=== PATIENT | male | born 1950 | race Caucasian/White ===

== ENCOUNTER 2018-06-16 15:10 | Emergency (ER) | payer MEDICARE, MEDICAID ==
[~2018-06-16] VITALS: Ht 180.3 cm; Wt 76.2 kg
[2018-06-16 16:59] LABS: BASOPHILS % (AUTO) 0.4 % (0-1); EOSINOPHILS # (AUTO) 0.7 X10'3 (0-0.9); EOSINOPHILS % (AUTO) 17.9 % (0-6); HEMATOCRIT 32.4 % (42.0-52.0); HEMOGLOBIN 10.7 g/dl (14.0-17.9); LYMPHOCYTES # (AUTO) 0.7 X10'3 (1.1-4.8); LYMPHOCYTES % (AUTO) 17.9 % (21-51); MEAN PLATELET VOLUME 7.7 FL (7.4-10.4); MONOCYTES # (AUTO) 0.3 X10'3 (0-0.9); MONOCYTES % (AUTO) 8.4 % (2-12); NEUTROPHILS # (AUTO) 2.1 X10'3 (1.8-7.7); NEUTROPHILS % (AUTO) 55.4 % (42-75); PLATELET COUNT 194 X10'3 (140-440); RED BLOOD COUNT 3.14 X10'6 (4.70-6.10); RED CELL DISTRIBUTION WIDTH 14.2 % (11.5-14.5); WHITE BLOOD COUNT 3.7 X10'3 (4.5-11.0)
[2018-06-16 17:12] LABS: INR 1.2 INR; PROTHROMBIN TIME 11.9 SECONDS (9.0-12.0)
[2018-06-16 17:27] LABS: ALANINE AMINOTRANSFERASE 14 U/L (12-78); ALBUMIN/GLOBULIN RATIO 0.4 (1.1-1.5); ALKALINE PHOSPHATASE 108 IU/L (46-116); ANION GAP 7 (8-16); ASPARTATE AMINO TRANSFERASE 39 U/L (10-37); BILIRUBIN,TOTAL 0.7 MG/DL (0.1-1.0); BLOOD UREA NITROGEN 4 MG/DL (7-18); CALCIUM 8.4 MG/DL (8.5-10.1); CHLORIDE 104 MMOL/L (99-107); GLUCOSE 87 MG/DL (70-104); PHOSPHORUS 3.3 MG/DL (2.3-4.5); SODIUM 139 MMOL/L (135-145); TOTAL PROTEIN 6.9 G/DL (6.4-8.2)
[2018-06-16 17:34] LABS: BUN/CREATININE RATIO 4.1 (5.4-32.0); CREATININE 0.98 MG/DL (0.60-1.10); eGFR 76 ML/MIN
[2018-06-16] MEDS ORDERED: potassium Cl oral solution 20 MEQ/15 ML PO ONE (18:05)
[2018-06-16 18:52] VITALS: BP 151/94
== END 2018-06-16 18:56 | disposition home or self-care (01) ==
LOC: ER 15:11
DX: T82.897A Other specified complication of cardiac prosthetic devices, implants and grafts, initial encounter (principal); R60.9 Edema, unspecified; E87.6 Hypokalemia; I10 Essential (primary) hypertension; J44.9 Chronic obstructive pulmonary disease, unspecified; J90 Pleural effusion, not elsewhere classified; G31.9 Degenerative disease of nervous system, unspecified; Z85.038 Personal history of other malignant neoplasm of large intestine; Z86.19 Personal history of other infectious and parasitic diseases; Z98.890 Other specified postprocedural states; Y92.9 Unspecified place or not applicable
CPT/HCPCS: 36415; 70450; 71046; 71250; 80053; 83880; 84100; 85025; 85610; 99285

== ENCOUNTER 2018-07-07 12:59 | Observation (INO) | payer MEDICARE, OTHER, MEDICAID ==
[~2018-07-07] VITALS: Ht 175.3 cm; Wt 75.6 kg
[2018-07-07] VITALS (12 sets, daily range): BP systolic 97–145; BP diastolic 68–88
[~2018-07-07 12:59] MED LIST: GABA600T2 PO; cefazolin/dext.iso 2gm/50ml 50 ML IV ONE; famotidine 20mg tablet PO ONE; ringers solution, lacted 1,000 ML IV SCH
[2018-07-07] MEDS ORDERED: cefazolin/dext.iso 2gm/50ml 50 ML IV ONE (13:55)
[2018-07-07] MEDS ORDERED: gabapentin 300mg capsule PO ONE (14:20)
[2018-07-07 19:45] LABS: BASOPHILS % (AUTO) 1.4 % (0-1); EOSINOPHILS # (AUTO) 0.4 X10'3 (0-0.9); EOSINOPHILS % (AUTO) 14.8 % (0-6); HEMATOCRIT 28.5 % (42.0-52.0); HEMOGLOBIN 9.5 g/dl (14.0-17.9); LYMPHOCYTES # (AUTO) 0.6 X10'3 (1.1-4.8); LYMPHOCYTES % (AUTO) 22.9 % (21-51); MEAN CORPUSCULAR HEMOGLOBIN 32.6 PG (27.0-31.0); MEAN CORPUSCULAR HGB CONC 33.2 % (33.0-36.5); MEAN CORPUSCULAR VOLUME 98.1 FL (78-98); MEAN PLATELET VOLUME 7.8 FL (7.4-10.4); MONOCYTES # (AUTO) 0.3 X10'3 (0-0.9); MONOCYTES % (AUTO) 10.2 % (2-12); NEUTROPHILS # (AUTO) 1.4 X10'3 (1.8-7.7); NEUTROPHILS % (AUTO) 50.7 % (42-75); PLATELET COUNT 159 X10'3 (140-440); WHITE BLOOD COUNT 2.8 X10'3 (4.5-11.0)
[2018-07-07] MEDS ORDERED: BUPIVAcaine/PF 2.5mg/ml (0.25%) 10ml vial ONE (19:52)
[2018-07-07 20:09] LABS: INR 1.3 INR; PARTIAL THROMBOPLASTIN TIME 33 SECONDS (22-32); PROTHROMBIN TIME 12.9 SECONDS (9.0-12.0)
[2018-07-07 20:13] LABS: ALANINE AMINOTRANSFERASE 8 U/L (12-78); ALBUMIN 1.6 G/DL (3.4-5.0); ALBUMIN/GLOBULIN RATIO 0.4 (1.1-1.5); ALKALINE PHOSPHATASE 82 IU/L (46-116); ANION GAP 8 (8-16); ASPARTATE AMINO TRANSFERASE 30 U/L (10-37); BILIRUBIN,TOTAL 0.9 MG/DL (0.1-1.0); BLOOD UREA NITROGEN 3 MG/DL (7-18); BUN/CREATININE RATIO 3.3 (5.4-32.0); CALCIUM 7.7 MG/DL (8.5-10.1); CHLORIDE 106 MMOL/L (99-107); CREATININE 0.92 MG/DL (0.60-1.10); GLUCOSE 80 MG/DL (70-104); SODIUM 140 MMOL/L (135-145); TOTAL CARBON DIOXIDE 26.1 MMOL/L (24-32); TOTAL PROTEIN 5.5 G/DL (6.4-8.2); eGFR 82 ML/MIN
[2018-07-07] MEDS ORDERED: midazolam 2 mg/2 ml injection ONE (20:30)
[2018-07-07] MEDS ORDERED: fentaNYL/PF 50MCG/1 ML 2ML syringe ONE (20:30)
[2018-07-07] MEDS ORDERED: propofol inj 20 ML IV ONE (20:30)
[2018-07-07] MEDS ORDERED: ringers solution, lacted 1,000 ML IV SCH (21:03)
[2018-07-07] MEDS ORDERED: proCHLORperazine 10 MG/2 ml inj IV PRN (21:05)
[2018-07-07] MEDS ORDERED: ondansetron/PF 4mg/2ml inj IV PRN (21:05)
[2018-07-07] MEDS ORDERED: meperidine/PF 25mg/ml syringe IV PRN ×3 (21:05)
[2018-07-07] MEDS ORDERED: morphine 4 MG/ML inj SYRINge IV PRN ×2 (21:05)
[2018-07-07 23:27] LABS: TOTAL CELLS COUNTED 100
[2018-07-07 23:28] LABS: ANISOCYTOSIS 1+; PLATELET ESTIMATE NORMAL; TARGET CELLS FEW
[2018-07-08] VITALS: BP 122/74
[2018-07-08] MEDS: HYDROcodone/acetaminophen 10/325mg tab PO PRN ×2 (00:10→04:30)
[2018-07-08 03:00] VITALS: BP 121/72
[2018-07-08 07:00] VITALS: BP 121/75
[2018-07-08] MEDS ORDERED: HYDR-3972 PO (10:50)
[2018-07-08 11:00] VITALS: BP 134/85
== END 2018-07-08 13:20 | disposition home or self-care (01) ==
LOC: PAS 12:59 → PCU 3S 18:16 → PAS 20:59
PROVIDERS: ADMIT Surgery; ATTEND Surgery
DX: T85.848A Pain due to other internal prosthetic devices, implants and grafts, initial encounter (principal); X58.XXXA Exposure to other specified factors, initial encounter
CPT/HCPCS: 20670; 36415; 80053; 85025; 85610; 85730; 93005; 96374; A6257; G0378; J0690; J2175; J2250; J2704; J3010; J3490; A7000; J7120

== ENCOUNTER 2019-07-29 20:05 | Inpatient (IN) | payer MEDICARE, OTHER, MEDICAID ==
[~2019-07-29] VITALS: Ht 175.3 cm; Wt 55.5 kg
[~2019-07-29 20:05] MED LIST changes: +GABA600T13 PO; -GABA600T2 PO; +HYDR-3972 PO; -cefazolin/dext.iso 2gm/50ml 50 ML IV ONE; -famotidine 20mg tablet PO ONE; -ringers solution, lacted 1,000 ML IV SCH
[2019-07-29] MEDS ORDERED: ipratropium/albuterol 3ml nebule NEB ONE (20:15)
[2019-07-29] MEDS ORDERED: methylPREDNISolone sod succ 125mg/2ml vial IV ONE (20:15)
[2019-07-29 20:38] LABS: PARTIAL THROMBOPLASTIN TIME 32 SECONDS (22-32)
[2019-07-29 20:47] LABS: MONOCYTES # (AUTO) 0.6 X10'3 (0-0.9)
[2019-07-29 20:49] LABS: LYMPHOCYTES # (AUTO) 0.7 X10'3 (1.1-4.8)
[2019-07-29 20:53] LABS: ALBUMIN 3.3 G/DL (3.4-5.0); ALBUMIN/GLOBULIN RATIO 0.7 (1.1-1.5); ANION GAP 8 (8-16); ASPARTATE AMINO TRANSFERASE 29 U/L (10-37); BILIRUBIN,TOTAL 0.4 MG/DL (0.1-1.0); BLOOD UREA NITROGEN 10 MG/DL (7-18); BUN/CREATININE RATIO 10.5 (5.4-32.0); CALCIUM 8.2 MG/DL (8.5-10.1); CHLORIDE 101 MMOL/L (99-107); CREATININE 0.95 MG/DL (0.60-1.10); GLUCOSE 83 MG/DL (70-104); POTASSIUM 3.8 MMOL/L (3.5-5.1); SODIUM 136 MMOL/L (135-145); TOTAL CARBON DIOXIDE 26.9 MMOL/L (24-32); TOTAL PROTEIN 7.8 G/DL (6.4-8.2); eGFR 79 ML/MIN
[2019-07-29 20:54] LABS: ALANINE AMINOTRANSFERASE 23 U/L (12-78); ALKALINE PHOSPHATASE 168 IU/L (46-116)
[2019-07-29 21:06] LABS: BASOPHILS # (AUTO) 0.2 X10'3 (0-0.2); RED BLOOD COUNT 3.39 X10'6 (4.70-6.10); WHITE BLOOD COUNT 6.4 X10'3 (4.5-11.0)
[2019-07-29 21:09] LABS: BASOPHILS % (AUTO) 2.5 % (0-1); HEMATOCRIT 33.7 % (42.0-52.0); HEMOGLOBIN 11.5 g/dl (14.0-17.9); LYMPHOCYTES % (AUTO) 10.5 % (21-51); MEAN CORPUSCULAR HEMOGLOBIN 33.8 PG (27.0-31.0); MEAN CORPUSCULAR VOLUME 99.5 FL (78-98); MEAN PLATELET VOLUME 6.6 FL (7.4-10.4); MONOCYTES % (AUTO) 8.7 % (2-12); NEUTROPHILS # (AUTO) 4.1 X10'3 (1.8-7.7); NEUTROPHILS % (AUTO) 63.3 % (42-75); PLATELET COUNT 194 X10'3 (140-440); RED CELL DISTRIBUTION WIDTH 13.2 % (11.5-14.5)
[2019-07-29] MEDS ORDERED: CefTRIAXone/D5W-Rocephin 1gm 50 ML IV ONE (21:15)
[2019-07-29] MEDS ORDERED: azithromycin/NS 500mg/250ml 250 ML IV ONE (21:15)
[2019-07-29] MEDS ORDERED: LORazepam 2 mg/ml vial IV ONE (21:15)
[2019-07-29 21:28] LABS: PLATELET ESTIMATE NORMAL; TOTAL CELLS COUNTED 100
[2019-07-29] MEDS ORDERED: ALBU18HF2 IH (21:32)
[2019-07-29] MEDS ORDERED: UMEC1DIS (21:32)
[2019-07-29] MEDS ORDERED: iohexol 300mg/ml 100ml inj. ONE (22:01)
[2019-07-29] MEDS ORDERED: acetaminophen 325mg tablet PO PRN (22:20)
[2019-07-29] MEDS ORDERED: ondansetron/PF 4mg/2ml inj IV PRN (22:20)
[2019-07-29] MEDS ORDERED: HYDROcodone/acetaminophen 10/325mg tab PO PRN (22:20)
[2019-07-29] MEDS ORDERED: magnesium hydroxide 30ml (MOM) UD suspension PO PRN (22:20)
[2019-07-29] MEDS ORDERED: magnesium 4gm in 100ml NS 100 ML IV PRN (22:20)
[2019-07-29] MEDS ORDERED: magnesium 2GM in 50ml NS 50 ML IV PRN (22:20)
[2019-07-29] MEDS ORDERED: HYDROcodone/acetaminophen 5mg/325mg tablet PO PRN (22:20)
[2019-07-29] MEDS ORDERED: potassium Cl 20 mEq SR tablet PO PRN ×2 (22:20)
[2019-07-29] MEDS ORDERED: mag hydrox/Alum hydrox/simeth 30ml oral suspension PO PRN (22:20)
[2019-07-29] MEDS ORDERED: potassium CL 10mEq/100ml bag 100 ML IV PRN ×2 (22:20)
[2019-07-29] MEDS ORDERED: albuterol 1.25 MG/3 ML (1/2 strength) nebule NEB PRN (22:25)
[2019-07-29] MEDS ORDERED: UMEC1DIS IH (22:28)
[2019-07-29] MEDS ORDERED: thiamine 100mg/ml 2ml inj. IV ONE (22:40)
--- NOTE | 2019-07-29 22:43 | NUR ---
Received report from YAZ Hopper. Awaiting patient arrival to the floor.
--- NOTE | 2019-07-29 22:45 | NUR ---
BP= 144/105. Hospitalist notified, no new orders.
[2019-07-29 22:55] VITALS: BP 150/75
[2019-07-29] MEDS ORDERED: thiamine inj. 100 MG in normal saline 100ml IV soln 99 ML IV ONE (23:15)
[2019-07-29] MEDS: normal saline 1000ml 1,000 ML IV SCH (23:20)
[2019-07-29] MEDS: Melatonin 3mg tablet PO SCH (23:20)
[2019-07-30 05:26] LABS: BASOPHILS % (AUTO) 0.5 % (0-1); EOSINOPHILS % (AUTO) 0.4 % (0-6); HEMATOCRIT 30.5 % (42.0-52.0); HEMOGLOBIN 10.4 g/dl (14.0-17.9); LYMPHOCYTES # (AUTO) 0.2 X10'3 (1.1-4.8); LYMPHOCYTES % (AUTO) 8.3 % (21-51); MEAN CORPUSCULAR HEMOGLOBIN 34.3 PG (27.0-31.0); MEAN CORPUSCULAR HGB CONC 34.2 g/dL (33.0-36.5); MEAN CORPUSCULAR VOLUME 100.3 FL (78-98); MEAN PLATELET VOLUME 6.6 FL (7.4-10.4); MONOCYTES % (AUTO) 1.9 % (2-12); NEUTROPHILS # (AUTO) 2.4 X10'3 (1.8-7.7); NEUTROPHILS % (AUTO) 88.9 % (42-75); PLATELET COUNT 159 X10'3 (140-440); RED BLOOD COUNT 3.04 X10'6 (4.70-6.10); RED CELL DISTRIBUTION WIDTH 13.2 % (11.5-14.5); WHITE BLOOD COUNT 2.6 X10'3 (4.5-11.0)
[2019-07-30 05:29] LABS: ALANINE AMINOTRANSFERASE 20 U/L (12-78); ALBUMIN 2.9 G/DL (3.4-5.0); ALBUMIN/GLOBULIN RATIO 0.7 (1.1-1.5); ALKALINE PHOSPHATASE 147 IU/L (46-116); ANION GAP 13 (8-16); ASPARTATE AMINO TRANSFERASE 25 U/L (10-37); BILIRUBIN,TOTAL 0.4 MG/DL (0.1-1.0); BLOOD UREA NITROGEN 10 MG/DL (7-18); CALCIUM 8.3 MG/DL (8.5-10.1); CHLORIDE 101 MMOL/L (99-107); CREATININE 0.91 MG/DL (0.60-1.10); GLUCOSE 101 MG/DL (70-104); MAGNESIUM 1.5 MG/DL (1.5-2.4); POTASSIUM 4.1 MMOL/L (3.5-5.1); SODIUM 136 MMOL/L (135-145); TOTAL CARBON DIOXIDE 21.7 MMOL/L (24-32); TOTAL PROTEIN 7.1 G/DL (6.4-8.2); eGFR 83 ML/MIN
--- NOTE | 2019-07-30 06:46 | NUR ---
Problems reprioritized. Patient report given, questions answered & plan of care reviewed with YAZ Cameron.
[2019-07-30 07:00] VITALS: BP 155/80
--- NOTE | 2019-07-30 07:02 | NUR ---
Patient in room [facility]. I have received report from YAZ ZIMMERMAN and had the opportunity to ask questions and assume patient care.
[2019-07-30] MEDS: cephalexin 250mg capsule PO SCH ×2 (08:00→14:36)
[2019-07-30] MEDS: K and/or MAG REPLACEMENT MC SCH ×2 (08:00→20:00)
[2019-07-30] MEDS: gabapentin 300mg capsule PO SCH ×3 (08:46→20:02)
[2019-07-30] MEDS: heparin, porcine 5000 units/ml vial SQ SCH ×2 (08:47→19:57)
[2019-07-30 09:02] LABS: PLATELET ESTIMATE NORMAL; TOTAL CELLS COUNTED 100
[2019-07-30 09:04] LABS: ANISOCYTOSIS 1+
[2019-07-30 09:06] LABS: MICROCYTOSIS FEW
[2019-07-30] MEDS ORDERED: ipratropium/albuterol 3ml nebule ONE (10:50)
[2019-07-30 11:00] VITALS: BP 157/95
--- NOTE | 2019-07-30 15:41 | NUR ---
Malnutrition consult: Pt admit w/ COPD exacerbation hx COPD, HTN, CVA, colon CA, SI. Pt drinks half bottle of wine/day per MD note; received 1x dose thiamin w/ MCV 100.3. B12 pending. Pt reports 20kg loss per MD note. Pt seen by RD and reports wt loss past 8 months r/t lack of appetite w/ wt prior to loss ~160 pounds. Current wt 55.5kg pt stated and prior standing scale wt on Jul 07 166 pounds. Likely not significant wt loss past month but pt does have visible severe muscle/fat wasting and meets severe malnutrition criteria at this time. MD notified. Pt edentulous and requests soft to chew foods w/ chopped meats; dietary notified. Pt reports drinks chocolate ensure enlive at home and is agreeable this admit on regular diet. MD notified. Pt aware pending ONS verification prior to sending on trays. RD provided pt w/ written/verbal malnutrition ed w/ RD contact information provided. TERENCE d/w RN regarding standing scaled wt this admit in order to further determine wt loss hx. LBM 07/29. Will continue to monitor. Rec: 1. continue regular diet; soft to chew foods w/ chopped meats 2. thiamin/folic for etoh per MD approval 3. chocolate ensure enlive TIDWM; pending MD verification prior to sending on trays 4. bowel care as needed 5. new standing scaled wt for accurate wt hx; weekly wts Addendum: 07/30/19 at [address] Amended: Links added.
[2019-07-30] MEDS: ipratropium/albuterol 3ml nebule NEB SCH ×3 (16:01→21:00)
[2019-07-30] MEDS ORDERED: CefTRIAXone/D5W-Rocephin 1gm 50 ML IV ONE (16:40)
[2019-07-30] MEDS: lactose-reduced food (Ensure Enlive) - 237ml bottle PO SCH (18:00)
--- NOTE | 2019-07-30 18:30 | NUR ---
Patient in room [facility]. I have received report from YAZ Cameron and had the opportunity to ask questions and assume patient care.
[2019-07-30 20:00] VITALS: BP 127/77
[2019-07-30] MEDS: Melatonin 3mg tablet PO SCH (20:02)
[2019-07-31] VITALS: BP 117/61
[2019-07-31] MEDS: metroNIDAZOLE-Flagyl 500mg/NS 100 ML IV SCH ×3 (00:19→16:37)
[2019-07-31] MEDS: ipratropium/albuterol 3ml nebule NEB PRN (05:02)
--- NOTE | 2019-07-31 05:10 | NUR ---
Patient stated he was feeling very SOB. RT gave him neb treatment and he said he still felt like he couldn't breathe very well. Dr. Redding was notified and pt was put on nonrebreather and flutter valve was used, pt was able to cough up phlegm and his O2 sat went up to 98% on 2L of O2
[2019-07-31 05:15] VITALS: BP 153/100
[2019-07-31 06:03] LABS: BASOPHILS % (AUTO) 1.2 % (0-1); EOSINOPHILS # (AUTO) 0.5 X10'3 (0-0.9); EOSINOPHILS % (AUTO) 13.4 % (0-6); HEMATOCRIT 32.6 % (42.0-52.0); LYMPHOCYTES # (AUTO) 0.8 X10'3 (1.1-4.8); LYMPHOCYTES % (AUTO) 19.5 % (21-51); MEAN CORPUSCULAR HEMOGLOBIN 33.7 PG (27.0-31.0); MEAN CORPUSCULAR HGB CONC 33.8 g/dL (33.0-36.5); MEAN CORPUSCULAR VOLUME 99.7 FL (78-98); MEAN PLATELET VOLUME 6.8 FL (7.4-10.4); MONOCYTES # (AUTO) 0.4 X10'3 (0-0.9); MONOCYTES % (AUTO) 8.7 % (2-12); NEUTROPHILS # (AUTO) 2.3 X10'3 (1.8-7.7); NEUTROPHILS % (AUTO) 57.2 % (42-75); PLATELET COUNT 182 X10'3 (140-440); RED BLOOD COUNT 3.26 X10'6 (4.70-6.10); RED CELL DISTRIBUTION WIDTH 13.4 % (11.5-14.5); WHITE BLOOD COUNT 4.1 X10'3 (4.5-11.0)
--- NOTE | 2019-07-31 06:13 | NUR ---
Problems reprioritized. Patient report given, questions answered & plan of care reviewed with YAZ Cameron.
--- NOTE | 2019-07-31 06:17 | NUR ---
Patient in room [facility]. I have received report from YAZ Neri and had the opportunity to ask questions and assume patient care.
[2019-07-31 06:26] LABS: ALANINE AMINOTRANSFERASE 19 U/L (12-78); ALBUMIN 2.9 G/DL (3.4-5.0); ALBUMIN/GLOBULIN RATIO 0.7 (1.1-1.5); ALKALINE PHOSPHATASE 123 IU/L (46-116); ANION GAP 9 (8-16); ASPARTATE AMINO TRANSFERASE 23 U/L (10-37); BILIRUBIN,TOTAL 0.4 MG/DL (0.1-1.0); BLOOD UREA NITROGEN 11 MG/DL (7-18); BUN/CREATININE RATIO 13.9 (5.4-32.0); CHLORIDE 102 MMOL/L (99-107); CREATININE 0.79 MG/DL (0.60-1.10); GLUCOSE 111 MG/DL (70-104); MAGNESIUM 1.4 MG/DL (1.5-2.4); POTASSIUM 3.6 MMOL/L (3.5-5.1); SODIUM 137 MMOL/L (135-145); TOTAL CARBON DIOXIDE 25.8 MMOL/L (24-32); eGFR > 90 ML/MIN
[2019-07-31 08:00] VITALS: BP 116/66
[2019-07-31] MEDS: K and/or MAG REPLACEMENT MC SCH ×2 (08:00→20:00)
[2019-07-31] MEDS: gabapentin 300mg capsule PO SCH ×3 (08:51→20:59)
[2019-07-31] MEDS: heparin, porcine 5000 units/ml vial SQ SCH ×2 (08:51→19:32)
[2019-07-31] MEDS: CefTRIAXone 2gm/D5W 50ml 50 ML IV SCH (08:52)
[2019-07-31] MEDS: lactose-reduced food (Ensure Enlive) - 237ml bottle PO SCH ×3 (08:52→18:44)
[2019-07-31] MEDS: ipratropium/albuterol 3ml nebule NEB SCH ×4 (09:38→20:06)
[2019-07-31 11:00] VITALS: BP 121/63
[2019-07-31] MEDS: magnesium Cl slow-release 64mg tablet PO PRN (14:30)
[2019-07-31] MEDS: normal saline 1000ml 1,000 ML IV SCH (16:37)
[2019-07-31 18:00] VITALS: BP 124/66
--- NOTE | 2019-07-31 18:17 | NUR ---
Problems reprioritized. Patient report given, questions answered & plan of care reviewed with YAZ Hayden.
[2019-07-31] MEDS: Melatonin 3mg tablet PO SCH (20:59)
[2019-08-01] VITALS: BP 107/61
[2019-08-01] MEDS: ipratropium/albuterol 3ml nebule NEB PRN ×2 (00:08→04:10)
[2019-08-01] MEDS: magnesium Cl slow-release 64mg tablet PO PRN (00:08)
[2019-08-01] MEDS: metroNIDAZOLE-Flagyl 500mg/NS 100 ML IV SCH ×2 (00:09→08:15)
--- NOTE | 2019-08-01 06:22 | NUR ---
report given to YAZ Anton
--- NOTE | 2019-08-01 06:29 | NUR ---
Patient in room [facility]. I have received report from Catracho MUKHERJEE and had the opportunity to ask questions and assume patient care.
[2019-08-01 06:38] LABS: BASOPHILS % (AUTO) 1.2 % (0-1); EOSINOPHILS # (AUTO) 0.6 X10'3 (0-0.9); EOSINOPHILS % (AUTO) 22.7 % (0-6); HEMATOCRIT 29.1 % (42.0-52.0); LYMPHOCYTES # (AUTO) 0.5 X10'3 (1.1-4.8); LYMPHOCYTES % (AUTO) 19.3 % (21-51); MEAN CORPUSCULAR HEMOGLOBIN 33.9 PG (27.0-31.0); MEAN CORPUSCULAR HGB CONC 34.3 g/dL (33.0-36.5); MEAN CORPUSCULAR VOLUME 98.6 FL (78-98); MEAN PLATELET VOLUME 6.8 FL (7.4-10.4); MONOCYTES # (AUTO) 0.3 X10'3 (0-0.9); MONOCYTES % (AUTO) 9.8 % (2-12); NEUTROPHILS # (AUTO) 1.3 X10'3 (1.8-7.7); PLATELET COUNT 147 X10'3 (140-440); RED BLOOD COUNT 2.95 X10'6 (4.70-6.10); RED CELL DISTRIBUTION WIDTH 13.3 % (11.5-14.5); WHITE BLOOD COUNT 2.8 X10'3 (4.5-11.0)
[2019-08-01 06:47] LABS: ALANINE AMINOTRANSFERASE 14 U/L (12-78); ALBUMIN 2.7 G/DL (3.4-5.0); ALBUMIN/GLOBULIN RATIO 0.8 (1.1-1.5); ALKALINE PHOSPHATASE 105 IU/L (46-116); ANION GAP 3 (8-16); ASPARTATE AMINO TRANSFERASE 21 U/L (10-37); BILIRUBIN,TOTAL 0.3 MG/DL (0.1-1.0); BLOOD UREA NITROGEN 8 MG/DL (7-18); BUN/CREATININE RATIO 10.3 (5.4-32.0); CALCIUM 8.2 MG/DL (8.5-10.1); CHLORIDE 104 MMOL/L (99-107); CREATININE 0.78 MG/DL (0.60-1.10); GLUCOSE 101 MG/DL (70-104); MAGNESIUM 1.6 MG/DL (1.5-2.4); POTASSIUM 3.8 MMOL/L (3.5-5.1); SODIUM 138 MMOL/L (135-145); TOTAL CARBON DIOXIDE 30.6 MMOL/L (24-32); TOTAL PROTEIN 6.2 G/DL (6.4-8.2); eGFR > 90 ML/MIN
[2019-08-01] MEDS: ipratropium/albuterol 3ml nebule NEB SCH ×2 (06:55→10:37)
[2019-08-01 06:57] VITALS: BP 110/62
[2019-08-01 07:05] LABS: PLATELET ESTIMATE NORMAL; TOTAL CELLS COUNTED 100
[2019-08-01] MEDS: K and/or MAG REPLACEMENT MC SCH (08:00)
[2019-08-01] MEDS: gabapentin 300mg capsule PO SCH ×2 (08:17→14:44)
[2019-08-01] MEDS: heparin, porcine 5000 units/ml vial SQ SCH (08:19)
[2019-08-01] MEDS: lactose-reduced food (Ensure Enlive) - 237ml bottle PO SCH ×2 (08:23→13:00)
[2019-08-01] MEDS ORDERED: prednisone 10mg tablet PO SCH (08:30)
[2019-08-01] MEDS: CefTRIAXone 2gm/D5W 50ml 50 ML IV SCH (09:50)
[2019-08-01 12:30] VITALS: BP 138/81
[2019-08-01 12:31] LABS: ABG BASE EXCESS -2.3 mmol/L (-2.0-3.0); ABG HCO3 20.5 mmol/L (22.0-26.0); ABG OXYGEN SATURATION 93.7 % (95-98); ABG PCO2 (T) 27.8 mmHg (35.0-45.0); ABG PH (T) 7.486 (7.350-7.450); ABG PO2 (T) 59.6 mmHg (83-108); ALLEN'S TEST Positive; FCOHb 0.1 % (0.5-1.5); FMetHb 0.1 % (0.3-1.12); FO2Hb 93.5 % (94-100); TOTAL HEMOGLOBIN 8.5 G/dl (14.0-17.9)
[2019-08-01] MEDS ORDERED: LEVO500T2 PO (13:23)
[2019-08-01] MEDS ORDERED: NYST1000 PO (13:52)
--- NOTE | 2019-08-01 15:56 | NUR ---
Patient D/C'd home by Dr Solzi. Patient in stable conditions. Discharge and medications instructions given to patient. IV removed. Patient left the hospital accompanied via private vehicle accompanied by family member.
[2019-08-15] MEDS ORDERED: CITA40TA17 PO (14:56)
== END 2019-08-01 15:05 | disposition home or self-care (01) | DRG 191 ==
LOC: ER 20:05 → ED HOLD 22:16 → EDBEDREQ 22:40 → SUR 3N 22:54
PROVIDERS: ADMIT Internal Medicine; ATTEND Hospitalist
PROC: BW241ZZ Computerized Tomography (CT Scan) of Chest and Abdomen using Low Osmolar Contrast (ICD-10-PCS; principal; 2019-07-29)
DX: J44.1 Chronic obstructive pulmonary disease with (acute) exacerbation (principal); Z68.1 Body mass index [BMI] 19.9 or less, adult; R64 Cachexia; B19.20 Unspecified viral hepatitis C without hepatic coma; D64.9 Anemia, unspecified; E03.9 Hypothyroidism, unspecified; F10.20 Alcohol dependence, uncomplicated; F17.200 Nicotine dependence, unspecified, uncomplicated; F32.9 Major depressive disorder, single episode, unspecified; G62.9 Polyneuropathy, unspecified; I71.2 Thoracic aortic aneurysm, without rupture; Z66 Do not resuscitate; I10 Essential (primary) hypertension; I27.20 Pulmonary hypertension, unspecified; R29.6 Repeated falls; Z85.038 Personal history of other malignant neoplasm of large intestine; Z95.1 Presence of aortocoronary bypass graft; Z95.2 Presence of prosthetic heart valve; Z79.899 Other long term (current) drug therapy
CPT/HCPCS: 36415; 36600; 71045; 71260; 80053; 82607; 82803; 83735; 83880; 84145; 84443; 84484; 85018; 85025; 85610; 85730; 87081; 93005; 93306; 94640; 94667; 94760; 96365; 96368; 96375; 99285; G0378; J0456; J0696; J1644; J2060; J2930; J3411; J3490; J7030; J7512; Q9967

== ENCOUNTER 2019-09-28 11:34 | Inpatient (IN) | payer MEDICARE, OTHER ==
[~2019-09-28] VITALS: Ht 175.3 cm; Wt 56.8 kg
[~2019-09-28 11:34] MED LIST changes: +ALBU18HF2 IH; +CITA40TA17 PO; -HYDR-3972 PO; +UMEC1DIS IH
[2019-09-28] MEDS ORDERED: normal saline 1000ml 1,000 ML IV ONE (11:42)
[2019-09-28] MEDS ORDERED: dexamethasone sod phosphate 10mg/ml inj IV STA (11:42)
[2019-09-28] MEDS ORDERED: albuterol 2.5 MG/3 ML nebule CONTNEB PRN (11:45)
[2019-09-28] MEDS ORDERED: magnesium 2GM in 50ml NS 50 ML IV ONE (11:45)
[2019-09-28] MEDS ORDERED: normal saline 1000ML IV soln IVB ONE (11:45)
--- NOTE | 2019-09-28 12:08 | NUR ---
RT at bedside for suction per NPA. Patient gave verbal consent
[2019-09-28] MEDS ORDERED: CefTRIAXone/D5W-Rocephin 1gm 50 ML IV ONE (12:10)
[2019-09-28 13:09] LABS: BASOPHILS # (AUTO) 0.1 X10'3 (0-0.2); BASOPHILS % (AUTO) 1.2 % (0-1); EOSINOPHILS # (AUTO) 0.8 X10'3 (0-0.9); EOSINOPHILS % (AUTO) 14.6 % (0-6); HEMATOCRIT 31.1 % (42.0-52.0); HEMOGLOBIN 9.8 g/dl (14.0-17.9); LYMPHOCYTES # (AUTO) 0.5 X10'3 (1.1-4.8); LYMPHOCYTES % (AUTO) 8.3 % (21-51); MEAN CORPUSCULAR HEMOGLOBIN 26.5 PG (27.0-31.0); MEAN CORPUSCULAR HGB CONC 31.6 g/dL (33.0-36.5); MEAN CORPUSCULAR VOLUME 83.9 FL (78-98); MEAN PLATELET VOLUME 6.4 FL (7.4-10.4); MONOCYTES # (AUTO) 0.4 X10'3 (0-0.9); MONOCYTES % (AUTO) 6.3 % (2-12); NEUTROPHILS # (AUTO) 3.9 X10'3 (1.8-7.7); NEUTROPHILS % (AUTO) 69.6 % (42-75); PLATELET COUNT 283 X10'3 (140-440); RED BLOOD COUNT 3.71 X10'6 (4.70-6.10); RED CELL DISTRIBUTION WIDTH 16.5 % (11.5-14.5); WHITE BLOOD COUNT 5.7 X10'3 (4.5-11.0)
[2019-09-28 13:21] LABS: ALANINE AMINOTRANSFERASE 9 U/L (12-78); ALBUMIN/GLOBULIN RATIO 0.9 (1.1-1.5); ALKALINE PHOSPHATASE 86 IU/L (46-116); ANION GAP 9 (8-16); ASPARTATE AMINO TRANSFERASE 25 U/L (10-37); BILIRUBIN,TOTAL 0.3 MG/DL (0.1-1.0); BLOOD UREA NITROGEN 10 MG/DL (7-18); BUN/CREATININE RATIO 10.5 (5.4-32.0); CALCIUM 8.8 MG/DL (8.5-10.1); CHLORIDE 105 MMOL/L (99-107); CREATININE 0.95 MG/DL (0.60-1.10); GLUCOSE 127 MG/DL (70-104); MAGNESIUM 1.9 MG/DL (1.5-2.4); POTASSIUM 3.7 MMOL/L (3.5-5.1); SODIUM 143 MMOL/L (135-145); TOTAL CARBON DIOXIDE 28.8 MMOL/L (24-32); TOTAL PROTEIN 6.5 G/DL (6.4-8.2); eGFR 79 ML/MIN
--- NOTE | 2019-09-28 13:33 | NUR ---
relieving RN for break, pt is resting quietly on bed, no resp distress at this time
[2019-09-28] MEDS ORDERED: ondansetron/PF 4mg/2ml inj IV PRN (13:50)
[2019-09-28] MEDS ORDERED: mag hydrox/Alum hydrox/simeth 30ml oral suspension PO PRN (13:50)
[2019-09-28] MEDS ORDERED: magnesium hydroxide 30ml (MOM) UD suspension PO PRN (13:50)
[2019-09-28] MEDS ORDERED: acetaminophen 325mg tablet PO PRN (13:50)
[2019-09-28] MEDS: methylPREDNISolone sod succ 125mg/2ml vial IV SCH ×2 (14:04→19:09)
--- NOTE | 2019-09-28 14:11 | NUR ---
Pt gave verbal consent to update his CG, Soha about his status, which was done.
[2019-09-28 15:00] VITALS: BP 120/67
[2019-09-28] MEDS ORDERED: non-formulary drug (Albuterol Sulfate (Ventolin Hfa) 2 PUFFS) IH PRN (15:15)
[2019-09-28] MEDS ORDERED: dextrose 50%-water 50ml dispensing syringe IV PRN (15:15)
[2019-09-28] MEDS ORDERED: LORazepam 2 mg/ml vial IV PRN (15:15)
[2019-09-28] MEDS ORDERED: thiamine 100mg/ml 2ml inj. IV ONE (15:15)
[2019-09-28] MEDS: ipratropium/albuterol 3ml nebule NEB SCH ×3 (16:40→23:22)
--- NOTE | 2019-09-28 18:05 | NUR ---
Problems reprioritized. Patient report given, questions answered & plan of care reviewed with YAZ Caraballo.
--- NOTE | 2019-09-28 18:14 | NUR ---
Problems reprioritized. Patient report given, questions answered & plan of care reviewed with YAZ Gandhi.
--- NOTE | 2019-09-28 18:15 | NUR ---
Patient in room [facility]U 3023. I have received report from YAZ Reaves and had the opportunity to ask questions and assume patient care.
[2019-09-28 19:00] VITALS: BP 146/90
[2019-09-28] MEDS: heparin, porcine 5000 units/ml vial SQ SCH (19:15)
[2019-09-28] MEDS: gabapentin 300mg capsule PO SCH (21:47)
[2019-09-28 23:00] VITALS: BP 128/79
[2019-09-29] VITALS (12 sets, daily range): BP systolic 92–166; BP diastolic 52–97
[2019-09-29] MEDS: ipratropium/albuterol 3ml nebule NEB SCH ×5 (02:27→19:39)
--- NOTE | 2019-09-29 02:30 | NUR ---
Sitter in room called nurse to room, reporting that the patient is having difficulty breathing. Upon arrival patient is sitting up in bed experiencing severe SOB and decreased saturation in the high 80's. Nurse increased NC from 2.0 LPM to 6.0 LPM. When nurse asked patient how he is feeling, patient stated "not good. I can't breathe." Nurse then called PCU charge nurse Tate to bedside. Patient continued to decline in oxygen saturation despite increased oxygen rate through NC. Patient then observed to be unresponsive to painful stimuli with decreased respirations per min. It was also observed that patient had experienced an incontinent episode which was not consistent with prior baseline response level. Non-rebreather then replaced the NC for increased oxygenation. Staff nurses assisted in BGL assessment and vitals assessment. BGL resulted to be 205. Rapid was called. ICU charge nurse Mariana and RT Nikhil came to bedside and assessed patient. RT gave breathing treatment and promptly increased in alertness and responsiveness. RT then titrated pt back down to 2.0 LPM via NC. Patient became A/Ox4 and increasingly responsive. ICU charge nurse then discussed plan of care with MD Elliott. ABGs, Chest X-RAY, and ammonia blood levels have been ordered per . Will continue to monitor.
[2019-09-29 02:55] LABS: ABG BASE EXCESS -5.1 mmol/L (-2.0-3.0); ABG PCO2 (T) 42.4 mmHg (35.0-45.0); ABG PH (T) 7.311 (7.350-7.450); ABG PO2 (T) 77.2 mmHg (83-108); FCOHb 0.3 % (0.5-1.5); FLOW 2 L/min; FMetHb 0.2 % (0.3-1.12); FO2Hb 93.5 % (94-100); PATIENT TEMPERATURE 36.8
[2019-09-29 03:16] LABS: BASOPHILS % (AUTO) 0.2 % (0-1); EOSINOPHILS % (AUTO) 0.2 % (0-6); HEMATOCRIT 31.7 % (42.0-52.0); HEMOGLOBIN 10.3 g/dl (14.0-17.9); LYMPHOCYTES # (AUTO) 0.4 X10'3 (1.1-4.8); LYMPHOCYTES % (AUTO) 10.9 % (21-51); MEAN CORPUSCULAR HEMOGLOBIN 26.9 PG (27.0-31.0); MEAN CORPUSCULAR HGB CONC 32.4 g/dL (33.0-36.5); MEAN CORPUSCULAR VOLUME 83.1 FL (78-98); MEAN PLATELET VOLUME 6.7 FL (7.4-10.4); MONOCYTES # (AUTO) 0.2 X10'3 (0-0.9); MONOCYTES % (AUTO) 6.8 % (2-12); NEUTROPHILS # (AUTO) 2.6 X10'3 (1.8-7.7); NEUTROPHILS % (AUTO) 81.9 % (42-75); PLATELET COUNT 265 X10'3 (140-440); RED BLOOD COUNT 3.81 X10'6 (4.70-6.10); RED CELL DISTRIBUTION WIDTH 16.4 % (11.5-14.5); WHITE BLOOD COUNT 3.2 X10'3 (4.5-11.0)
[2019-09-29 03:23] LABS: ALBUMIN 3.2 G/DL (3.4-5.0); ANION GAP 10 (8-16); BLOOD UREA NITROGEN 12 MG/DL (7-18); BUN/CREATININE RATIO 11.1 (5.4-32.0); CALCIUM 8.4 MG/DL (8.5-10.1); CHLORIDE 103 MMOL/L (99-107); CREATININE 1.08 MG/DL (0.60-1.10); GLUCOSE 197 MG/DL (70-104); POTASSIUM 3.9 MMOL/L (3.5-5.1); SODIUM 139 MMOL/L (135-145); eGFR 68 ML/MIN
[2019-09-29] MEDS: methylPREDNISolone sod succ 125mg/2ml vial IV SCH ×4 (03:39→20:17)
--- NOTE | 2019-09-29 06:19 | NUR ---
Problems reprioritized. Patient report given, questions answered & plan of care reviewed with YAZ Isabel.
--- NOTE | 2019-09-29 06:41 | NUR ---
Patient in room PCU 3028L. I have received report from and had the opportunity to ask questions and assume patient care. Patient laying in bed, eyes closed, awakes to voice and has no complaints at this time. Will continue to monitor.
[2019-09-29] MEDS: folic acid 1mg tablet PO SCH (07:43)
[2019-09-29] MEDS: thiamine 100mg tablet PO SCH (07:43)
[2019-09-29] MEDS: heparin, porcine 5000 units/ml vial SQ SCH ×2 (07:44→20:17)
[2019-09-29] MEDS: gabapentin 300mg capsule PO SCH ×4 (07:44→20:17)
[2019-09-29] MEDS ORDERED: thiamine inj. 100 MG, folic acid inj. 2 MG in normal saline 100ml IV soln 99 ML IV SCH (08:00)
[2019-09-29] MEDS ORDERED: (Umeclidinium Brm/Vilanterol Tr (Anoro Ellipta 62.5-25 Mcg INH) 1 PUFF) PO SCH (08:00)
[2019-09-29] MEDS ORDERED: citalopram 20mg tablet PO SCH (08:00)
[2019-09-29] MEDS ORDERED: MVI, adult No.4 with vit. K 10 ML in dextrose 5% water 500ml 500 ML IV SCH ×2 (08:00)
[2019-09-29] MEDS: citalopram 20mg tablet PO SCH (08:32)
[2019-09-29] MEDS ORDERED: potassium Cl 20 mEq SR tablet PO PRN ×2 (10:40)
[2019-09-29] MEDS ORDERED: magnesium Cl slow-release 64mg tablet PO PRN (10:40)
[2019-09-29] MEDS: K and/or MAG REPLACEMENT MC SCH ×2 (10:40→20:00)
[2019-09-29] MEDS ORDERED: potassium CL 10mEq/100ml bag 100 ML IV PRN (10:40)
[2019-09-29] MEDS ORDERED: magnesium 4gm in 100ml NS 100 ML IV PRN (10:40)
[2019-09-29] MEDS: levoFLOXACIN-Levaquin 500mg/D5 100 ML IV SCH (13:17)
--- NOTE | 2019-09-29 13:24 | NUR ---
Late medication administration: Levaquin started at 1324,. daily IV med. Patient already had MVI and thiamine infusing, only has one IV as access is difficult to obtain.
--- NOTE | 2019-09-29 14:25 | NUR ---
PAGER ID: [phone] MESSAGE: Maame gerald [phone]. Coco Valderrama [id number]. FYI: MRSA swab positive.
--- NOTE | 2019-09-29 18:26 | NUR ---
Problems reprioritized. Patient report given, questions answered & plan of care reviewed with Oksana MUKHERJEE. Patient laying in bed, appears to be sleeping, no signs of distress, VS stable at shift change.
--- NOTE | 2019-09-29 19:28 | NUR ---
Patient states he is experiencing increased difficulty breathing and is unable to eat because he is focused on breathing. RT has been paged.
[2019-09-30] MEDS: ipratropium/albuterol 3ml nebule NEB SCH ×5 (00:04→15:57)
[2019-09-30 02:40] VITALS: BP 94/50
[2019-09-30] MEDS: methylPREDNISolone sod succ 125mg/2ml vial IV SCH ×3 (02:43→14:19)
[2019-09-30 06:00] VITALS: BP 96/51
[2019-09-30 06:13] LABS: BASOPHILS % (AUTO) 0.2 % (0-1); EOSINOPHILS % (AUTO) 0 % (0-6); HEMATOCRIT 27.3 % (42.0-52.0); HEMOGLOBIN 9.2 g/dl (14.0-17.9); LYMPHOCYTES # (AUTO) 0.3 X10'3 (1.1-4.8); LYMPHOCYTES % (AUTO) 4.6 % (21-51); MEAN CORPUSCULAR HEMOGLOBIN 27.6 PG (27.0-31.0); MEAN CORPUSCULAR HGB CONC 33.7 g/dL (33.0-36.5); MEAN CORPUSCULAR VOLUME 81.7 FL (78-98); MEAN PLATELET VOLUME 6.6 FL (7.4-10.4); MONOCYTES # (AUTO) 0.2 X10'3 (0-0.9); MONOCYTES % (AUTO) 2.8 % (2-12); NEUTROPHILS # (AUTO) 5.4 X10'3 (1.8-7.7); NEUTROPHILS % (AUTO) 92.4 % (42-75); PLATELET COUNT 251 X10'3 (140-440); RED BLOOD COUNT 3.34 X10'6 (4.70-6.10); RED CELL DISTRIBUTION WIDTH 16.4 % (11.5-14.5); WHITE BLOOD COUNT 5.8 X10'3 (4.5-11.0)
--- NOTE | 2019-09-30 06:32 | NUR ---
Patient in room PCU 3023. I have received report from YAZ GLASGOW and had the opportunity to ask questions and assume patient care.
--- NOTE | 2019-09-30 06:33 | NUR ---
Problems reprioritized. Patient report given, questions answered & plan of care reviewed with YAZ Anderson.
[2019-09-30] MEDS ORDERED: folic acid 1mg tablet PO SCH (08:00)
[2019-09-30] MEDS ORDERED: multivitamins, therapeutics tablet PO SCH (08:00)
[2019-09-30] MEDS: K and/or MAG REPLACEMENT MC SCH (08:00)
[2019-09-30] MEDS: folic acid 1mg tablet PO SCH (08:00)
[2019-09-30 08:40] LABS: ALBUMIN 3.1 G/DL (3.4-5.0); ANION GAP 6 (8-16); BLOOD UREA NITROGEN 11 MG/DL (7-18); BUN/CREATININE RATIO 14.7 (5.4-32.0); CALCIUM 8.7 MG/DL (8.5-10.1); CHLORIDE 103 MMOL/L (99-107); CREATININE 0.75 MG/DL (0.60-1.10); GLUCOSE 149 MG/DL (70-104); SODIUM 137 MMOL/L (135-145); TOTAL CARBON DIOXIDE 28.2 MMOL/L (24-32); eGFR > 90 ML/MIN
[2019-09-30] MEDS: levoFLOXACIN-Levaquin 500mg/D5 100 ML IV SCH (08:50)
[2019-09-30] MEDS: citalopram 20mg tablet PO SCH (08:57)
[2019-09-30] MEDS: gabapentin 300mg capsule PO SCH ×3 (08:58→17:36)
[2019-09-30] MEDS: heparin, porcine 5000 units/ml vial SQ SCH (08:59)
[2019-09-30] MEDS: thiamine 100mg tablet PO SCH (08:59)
[2019-09-30 11:00] VITALS: BP 145/82
[2019-09-30] MEDS ORDERED: iohexol 350MG/ML 100ml bottle IV ONE (13:09)
[2019-09-30 15:00] VITALS: BP 123/79
[2019-09-30] MEDS ORDERED: LORazepam 1 MG tablet PO PRN (15:15)
[2019-09-30] MEDS ORDERED: LORazepam 2 mg/ml vial IV PRN (15:15)
[2019-09-30] MEDS ORDERED: PRED10TA23 PO (16:05)
[2019-09-30] MEDS ORDERED: ALBU8.5H8 INH (16:05)
[2019-09-30] MEDS ORDERED: MULT-1179 PO (16:05)
[2019-09-30] MEDS ORDERED: ADV50250 INH (16:05)
[2019-09-30] MEDS ORDERED: thiamine tablet PO (16:05)
[2019-09-30] MEDS ORDERED: folic acid tablet PO (16:05)
[2019-09-30] MEDS ORDERED: LEVO750T46 PO (16:05)
[2019-09-30] MEDS ORDERED: FOLI0.4T2 PO (16:07)
[2019-09-30] MEDS ORDERED: THIA100T70 PO (16:07)
--- NOTE | 2019-09-30 16:22 | NUR ---
CALL FROM JULIANNA MAY DETONATOR MAKER. NEED TO QUALIFY FOR HOME 02. PUT ON RA, HOOKED UP TO PORTABLE PULSE OX. STATES i JUST RECEIVED A NEBULIZER TREATMENT. MAY NEED TO AMB TO QUALIFY.
--- NOTE | 2019-09-30 16:48 | NUR ---
O2 Sat at rest on room air:___89% If below 89%: Recovery O2 Sat at rest on ___LPM:___%:___% via (mask/nasal cannula, etc..) No further documentation is necessary. If O2 Sat did not drop below 89% on room air,ambulate patient on room air. O2 Sat while ambulating on room air:__86_% Recovery O2 Sat while ambulating on __2_LPM:__96_% No further documentation is necessary. If patient does not drop below 89% while ambulating, he/she does not qualify for home O2.
--- NOTE | 2019-09-30 17:51 | NUR ---
CALLED SISTER "VIRGINIA" AT [phone] FOR RIDE HOME, LEFT MESSAGE TO PLEASE CALL BACK. HAS DISCHARGE PAPERWORK SIGNED. AWAITING RIDE TO REMOVE PIV. PORTABLE 02 WAS DELIVERED.
--- NOTE | 2019-09-30 18:26 | NUR ---
Problems reprioritized. Patient report given, questions answered & plan of care reviewed with YAZ THEODORE.
--- NOTE | 2019-09-30 18:39 | NUR ---
Patient in room PCU 3016. I have received report from YAZ Anderson and had the opportunity to ask questions and assume patient care.
[2019-09-30 18:44] VITALS: BP 132/78
--- NOTE | 2019-09-30 21:35 | NUR ---
Patient taken home by sister Shana in personal vehicle. Wheeled down by YAZ Villagomez in stable condition with oxygen device and belongings in bag.
[2019-10-02] MEDS ORDERED: LORazepam 1 MG tablet PO PRN (15:15)
[2019-10-02] MEDS ORDERED: LORazepam 2 mg/ml vial IV PRN (15:15)
== END 2019-09-30 19:30 | disposition home health service (06) | DRG 193 ==
LOC: ER 11:35 → ED HOLD 13:48 → PCU 3S 14:30
PROVIDERS: ADMIT Family Medicine; ATTEND Family Medicine
PROC: B32T1ZZ Computerized Tomography (CT Scan) of Left Pulmonary Artery using Low Osmolar Contrast (ICD-10-PCS; principal; 2019-09-30)
PROC: B3201ZZ Computerized Tomography (CT Scan) of Thoracic Aorta using Low Osmolar Contrast (ICD-10-PCS; 2019-09-30)
PROC: B32S1ZZ Computerized Tomography (CT Scan) of Right Pulmonary Artery using Low Osmolar Contrast (ICD-10-PCS; 2019-09-30)
DX: J18.9 Pneumonia, unspecified organism (principal); J96.20 Acute and chronic respiratory failure, unspecified whether with hypoxia or hypercapnia; E87.2 Acidosis; J44.0 Chronic obstructive pulmonary disease with (acute) lower respiratory infection; J44.1 Chronic obstructive pulmonary disease with (acute) exacerbation; J98.11 Atelectasis; F10.20 Alcohol dependence, uncomplicated; F17.210 Nicotine dependence, cigarettes, uncomplicated; G62.9 Polyneuropathy, unspecified; F41.8 Other specified anxiety disorders; I10 Essential (primary) hypertension; I25.10 Atherosclerotic heart disease of native coronary artery without angina pectoris; B19.20 Unspecified viral hepatitis C without hepatic coma; J20.9 Acute bronchitis, unspecified; Z66 Do not resuscitate; Z79.899 Other long term (current) drug therapy; Z85.038 Personal history of other malignant neoplasm of large intestine; Z95.1 Presence of aortocoronary bypass graft; Z95.2 Presence of prosthetic heart valve; Z99.81 Dependence on supplemental oxygen; Z71.41 Alcohol abuse counseling and surveillance of alcoholic; Z71.6 Tobacco abuse counseling
CPT/HCPCS: 36415; 36600; 71045; 71275; 80048; 80053; 82140; 82803; 82948; 83605; 83735; 85018; 85025; 85610; 87040; 87081; 94640; 94760; 96374; 99291; G0378; J0696; J1100; J1644; J1956; J2060; J2930; J3411; J3475; J3490; J7030; J7060; Q9967

== ENCOUNTER 2019-10-25 01:07 | Emergency (ER) | payer MEDICARE, OTHER ==
[~2019-10-25] VITALS: Ht 175.3 cm; Wt 59.0 kg
[~2019-10-25 01:07] MED LIST changes: +ADV50250 INH; +ALBU8.5H8 INH; +FOLI0.4T2 PO; +LEVO750T46 PO; +MULT-1179 PO; +PRED10TA23 PO; +THIA100T70 PO
[2019-10-25] MEDS ORDERED: methylPREDNISolone sod succ 125mg/2ml vial IV ONE (01:25)
[2019-10-25] MEDS ORDERED: ipratropium/albuterol 3ml nebule NEB ONE (01:30)
[2019-10-25 02:01] LABS: ABG BASE EXCESS 0.6 mmol/L (-2.0-3.0); ABG HCO3 26.2 mmol/L (22.0-26.0); ABG OXYGEN SATURATION 96.8 % (95-98); ABG PCO2 (T) 46.6 mmHg (35.0-45.0); ABG PH (T) 7.369 (7.350-7.450); ABG PO2 (T) 91.3 mmHg (83-108); FCOHb 1.3 % (0.5-1.5); FLOW 2 L/min; FMetHb 0.2 % (0.3-1.12); FO2Hb 95.3 % (94-100); PATIENT TEMPERATURE 37.3; TOTAL HEMOGLOBIN 11.8 G/dl (14.0-17.9)
[2019-10-25 02:07] LABS: BASOPHILS # (AUTO) 0.1 X10'3 (0-0.2); HEMATOCRIT 34.4 % (42.0-52.0); HEMOGLOBIN 11.3 g/dl (14.0-17.9); LYMPHOCYTES # (AUTO) 0.7 X10'3 (1.1-4.8); LYMPHOCYTES % (AUTO) 11.4 % (21-51); MEAN CORPUSCULAR HEMOGLOBIN 26.4 PG (27.0-31.0); MEAN CORPUSCULAR HGB CONC 32.9 g/dL (33.0-36.5); MEAN CORPUSCULAR VOLUME 80.2 FL (78-98); MEAN PLATELET VOLUME 6.5 FL (7.4-10.4); MONOCYTES # (AUTO) 0.7 X10'3 (0-0.9); MONOCYTES % (AUTO) 11.9 % (2-12); NEUTROPHILS # (AUTO) 3.5 X10'3 (1.8-7.7); NEUTROPHILS % (AUTO) 58.7 % (42-75); PLATELET COUNT 221 X10'3 (140-440); RED BLOOD COUNT 4.29 X10'6 (4.70-6.10); WHITE BLOOD COUNT 5.9 X10'3 (4.5-11.0)
[2019-10-25 02:17] LABS: ALANINE AMINOTRANSFERASE 13 U/L (12-78); ALBUMIN 3.6 G/DL (3.4-5.0); ALKALINE PHOSPHATASE 94 IU/L (46-116); ANION GAP 10 (8-16); ASPARTATE AMINO TRANSFERASE 19 U/L (10-37); BILIRUBIN,TOTAL 0.4 MG/DL (0.1-1.0); BLOOD UREA NITROGEN 7 MG/DL (7-18); BUN/CREATININE RATIO 9.2 (5.4-32.0); CALCIUM 8.6 MG/DL (8.5-10.1); CHLORIDE 100 MMOL/L (99-107); CREATININE 0.76 MG/DL (0.60-1.10); GLUCOSE 82 MG/DL (70-104); POTASSIUM 4.1 MMOL/L (3.5-5.1); SODIUM 137 MMOL/L (135-145); TOTAL CARBON DIOXIDE 27.5 MMOL/L (24-32); TOTAL PROTEIN 7.1 G/DL (6.4-8.2); eGFR > 90 ML/MIN
[2019-10-25 02:19] LABS: PARTIAL THROMBOPLASTIN TIME 32 SECONDS (22-32)
[2019-10-25 02:35] LABS: ANISOCYTOSIS 1+; PLATELET ESTIMATE NORMAL
[2019-10-25] MEDS ORDERED: PRED20TA PO (02:47)
[2019-10-25] MEDS ORDERED: AZIT250T81 PO (02:47)
[2019-10-25 03:13] VITALS: BP 112/77
== END 2019-10-25 03:20 | disposition home or self-care (01) ==
LOC: ER 01:07
DX: J44.1 Chronic obstructive pulmonary disease with (acute) exacerbation (principal); I10 Essential (primary) hypertension; F17.200 Nicotine dependence, unspecified, uncomplicated; Z86.19 Personal history of other infectious and parasitic diseases; Z98.890 Other specified postprocedural states; Z85.038 Personal history of other malignant neoplasm of large intestine; Z79.2 Long term (current) use of antibiotics; Z79.899 Other long term (current) drug therapy
CPT/HCPCS: 36415; 36600; 71045; 80053; 82803; 83880; 85018; 85025; 85610; 85730; 93005; 94640; 96374; 99285; J2930; 94760

== ENCOUNTER 2019-11-10 05:21 | Emergency (ER) | payer MEDICARE, OTHER, MEDICAID ==
[~2019-11-10] VITALS: Ht 175.3 cm; Wt 57.3 kg
[~2019-11-10 05:21] MED LIST changes: -FOLI0.4T2 PO; -LEVO750T46 PO; -PRED10TA23 PO
[2019-11-10] MEDS ORDERED: ipratropium/albuterol 3ml nebule NEB ONE (05:45)
[2019-11-10 06:08] LABS: BASOPHILS # (AUTO) 0.1 X10'3 (0-0.2); BASOPHILS % (AUTO) 1.5 % (0-1); EOSINOPHILS # (AUTO) 0.7 X10'3 (0-0.9); EOSINOPHILS % (AUTO) 7.8 % (0-6); HEMATOCRIT 36.4 % (42.0-52.0); HEMOGLOBIN 11.5 g/dl (14.0-17.9); LYMPHOCYTES # (AUTO) 0.8 X10'3 (1.1-4.8); MEAN CORPUSCULAR HEMOGLOBIN 25.4 PG (27.0-31.0); MEAN CORPUSCULAR HGB CONC 31.5 g/dL (33.0-36.5); MEAN CORPUSCULAR VOLUME 80.7 FL (78-98); MEAN PLATELET VOLUME 6.6 FL (7.4-10.4); MONOCYTES # (AUTO) 0.9 X10'3 (0-0.9); NEUTROPHILS % (AUTO) 70.7 % (42-75); PLATELET COUNT 236 X10'3 (140-440); RED BLOOD COUNT 4.51 X10'6 (4.70-6.10); WHITE BLOOD COUNT 8.5 X10'3 (4.5-11.0)
[2019-11-10 06:17] LABS: PARTIAL THROMBOPLASTIN TIME 32 SECONDS (22-32)
[2019-11-10 06:20] LABS: ALANINE AMINOTRANSFERASE 14 U/L (12-78); ALBUMIN 3.5 G/DL (3.4-5.0); ALBUMIN/GLOBULIN RATIO 0.9 (1.1-1.5); ALKALINE PHOSPHATASE 90 IU/L (46-116); ANION GAP 4 (8-16); ASPARTATE AMINO TRANSFERASE 19 U/L (10-37); BILIRUBIN,TOTAL 0.3 MG/DL (0.1-1.0); BLOOD UREA NITROGEN 7 MG/DL (7-18); BUN/CREATININE RATIO 9.7 (5.4-32.0); CALCIUM 9.7 MG/DL (8.5-10.1); CHLORIDE 101 MMOL/L (99-107); CREATININE 0.72 MG/DL (0.60-1.10); GLUCOSE 102 MG/DL (70-104); SODIUM 134 MMOL/L (135-145); TOTAL CARBON DIOXIDE 28.9 MMOL/L (24-32); TOTAL PROTEIN 7.5 G/DL (6.4-8.2); eGFR > 90 ML/MIN
[2019-11-10] MEDS ORDERED: AZIT-63 PO (06:31)
[2019-11-10] MEDS ORDERED: PRED20TA PO (06:31)
[2019-11-10] MEDS ORDERED: predniSONE 20 mg tablet PO ONE (06:35)
[2019-11-10] MEDS ORDERED: azithromycin 250mg tablet PO ONE (06:35)
[2019-11-10] MEDS ORDERED: acetaminophen 325mg tablet PO ONE (06:55)
[2019-11-10 07:02] LABS: ANISOCYTOSIS 2+; PLATELET ESTIMATE NORMAL; POLYCHROMASIA FEW
[2019-11-10 09:27] VITALS: BP 123/68
--- NOTE | 2019-11-10 10:19 | NUR ---
Called to give patient COIVD results. Left message.
== END 2019-11-10 09:30 | disposition home or self-care (01) ==
LOC: ER 05:22
DX: J44.1 Chronic obstructive pulmonary disease with (acute) exacerbation (principal); Z20.828 Contact with and (suspected) exposure to other viral communicable diseases; I10 Essential (primary) hypertension; Z86.19 Personal history of other infectious and parasitic diseases; Z85.038 Personal history of other malignant neoplasm of large intestine; Z98.890 Other specified postprocedural states; Z60.2 Problems related to living alone; Z59.0 Homelessness
CPT/HCPCS: 36415; 71045; 80053; 85025; 85610; 85730; 87635; 93005; 94640; 99285; J7512; 94760

== ENCOUNTER 2019-11-29 15:39 | Emergency (ER) | payer MEDICARE, OTHER, MEDICAID ==
[~2019-11-29] VITALS: Ht 175.3 cm; Wt 65.0 kg
[~2019-11-29 15:39] MED LIST changes: +AZIT-63 PO; +PRED20TA PO
[2019-11-29 16:05] LABS: BASOPHILS % (AUTO) 0.9 % (0-1); EOSINOPHILS # (AUTO) 0.6 X10'3 (0-0.9); EOSINOPHILS % (AUTO) 10.3 % (0-6); HEMATOCRIT 35.3 % (42.0-52.0); HEMOGLOBIN 11.4 g/dl (14.0-17.9); LYMPHOCYTES # (AUTO) 1.3 X10'3 (1.1-4.8); LYMPHOCYTES % (AUTO) 23.2 % (21-51); MEAN CORPUSCULAR HEMOGLOBIN 25.9 PG (27.0-31.0); MEAN CORPUSCULAR HGB CONC 32.4 g/dL (33.0-36.5); MEAN CORPUSCULAR VOLUME 79.9 FL (78-98); MEAN PLATELET VOLUME 6.4 FL (7.4-10.4); MONOCYTES # (AUTO) 0.5 X10'3 (0-0.9); MONOCYTES % (AUTO) 8.8 % (2-12); NEUTROPHILS # (AUTO) 3.1 X10'3 (1.8-7.7); NEUTROPHILS % (AUTO) 56.8 % (42-75); PLATELET COUNT 212 X10'3 (140-440); RED BLOOD COUNT 4.42 X10'6 (4.70-6.10); RED CELL DISTRIBUTION WIDTH 21.3 % (11.5-14.5); WHITE BLOOD COUNT 5.5 X10'3 (4.5-11.0)
[2019-11-29 16:18] LABS: ALANINE AMINOTRANSFERASE 15 U/L (12-78); ALBUMIN 3.3 G/DL (3.4-5.0); ALKALINE PHOSPHATASE 75 IU/L (46-116); ANION GAP 7 (8-16); ANISOCYTOSIS 3+; ASPARTATE AMINO TRANSFERASE 22 U/L (10-37); BILIRUBIN,TOTAL 0.2 MG/DL (0.1-1.0); BLOOD UREA NITROGEN 7 MG/DL (7-18); BUN/CREATININE RATIO 9.2 (5.4-32.0); CALCIUM 8.9 MG/DL (8.5-10.1); CHLORIDE 99 MMOL/L (99-107); CREATININE 0.76 MG/DL (0.60-1.10); GLUCOSE 74 MG/DL (70-104); MICROCYTOSIS 1+; PLATELET ESTIMATE NORMAL; SODIUM 131 MMOL/L (135-145); TOTAL PROTEIN 6.7 G/DL (6.4-8.2); eGFR > 90 ML/MIN
[2019-11-29 16:27] LABS: ETHANOL 0.221 GM/DL (0.0-0.010)
[2019-11-29 18:24] LABS: CLARITY,URINE CLEAR (Clear); COLOR,URINE YELLOW (Yellow); GLUCOSE, URINE NEGATIVE (Neg); KETONES,URINE NEGATIVE (Neg); LEUKOCYTE ESTERASE ,URINE NEGATIVE (Neg); NITRITES, URINE NEGATIVE (Neg); OCCULT BLOOD,URINE TRACE-INTACT (Neg); PROTEIN,URINE NEGATIVE (Neg); UROBILINOGEN,URINE 0.2 E.U/dL (0.2-1.0)
[2019-11-29 18:25] LABS: URINE AMPHETAMINE SCREEN NEGATIVE (Neg); URINE BARBITUATE SCREEN NEGATIVE (Neg); URINE BENZODIAZEPINES SCREEN NEGATIVE (Neg); URINE CANNABINOID SCREEN POSITIVE (Neg); URINE COCAINE SCREEN NEGATIVE (Neg); URINE METHADONE SCREEN NEGATIVE (Neg); URINE OPIATE SCREEN NEGATIVE (Neg); URINE PHENCYCLIDINE SCREEN NEGATIVE (Neg)
[2019-11-29 18:42] LABS: UA COLLECTION TYPE CLN CATCH MIDSTREAM
[2019-11-29 18:43] LABS: BACTERIA,URINE NONE SEEN /HPF (Neg); MUCUS STRANDS MANY /LPF (Neg); RBC,URINE 0-2 /HPF (0-2); SQUAMOUS EPITHELIAL CELL,UR FEW /LPF (FEW); WBC,URINE 0-4 /HPF (0-4)
[2019-11-29] MEDS ORDERED: ADV50250 INH (19:31)
[2019-11-29] MEDS ORDERED: ALBU8HFA PO (19:31)
--- NOTE | 2019-11-29 19:56 | NUR ---
pt packet faxed to [facility]
[2019-11-29] MEDS ORDERED: non-formulary drug (Fluticasone/Salmeterol* (Advair 250-50 Diskus*) 1 PUFF) INH SCH (20:00)
[2019-11-29] MEDS: gabapentin 300mg capsule PO SCH (20:20)
[2019-11-29] MEDS: budesonide 0.5mg/2ml UD nebule IH SCH (21:00)
--- NOTE | 2019-11-29 21:05 | NUR ---
Patient laying in bed requesting breathing treatment. No apparent s/s of distress. Patient was evaluated by [facility]
[2019-11-29] MEDS: albuterol 2.5 MG/3 ML nebule NEB PRN (21:12)
--- NOTE | 2019-11-29 21:30 | NUR ---
Received call from patient's son regarding the possibility of patient being placed on a 5150 hold and the fact that he wanted to let us know that patient is a daily drinker of alcohol. Son stated that patient "drinks a lot" and is usually not honest with staff about how much he drinks.
--- NOTE | 2019-11-29 23:00 | NUR ---
Patient anxious and asking for something to help him sleep. Notified MD and awaiting new orders
[2019-11-30] MEDS ORDERED: LORazepam 1 MG tablet PO ONE (00:20)
--- NOTE | 2019-11-30 01:00 | NUR ---
Pt appears to be resting comfortably after PO Ativan given. No apparent s/s of distress noted
--- NOTE | 2019-11-30 03:00 | NUR ---
Pt appears to be resting comfortably. No apparent s/s of distress noted
[2019-11-30] MEDS: albuterol 2.5 MG/3 ML nebule NEB PRN (03:32)
--- NOTE | 2019-11-30 05:00 | NUR ---
Pt appears to be resting comfortably. No apparent s/s of distress noted
--- NOTE | 2019-11-30 06:19 | NUR ---
asleep laying on right side respirations unlabored.
--- NOTE | 2019-11-30 07:08 | NUR ---
sleeping on right side
[2019-11-30] MEDS: albuterol 2.5 MG/3 ML nebule NEB SCH ×3 (07:51→15:41)
[2019-11-30] MEDS: budesonide 0.5mg/2ml UD nebule IH SCH (07:52)
--- NOTE | 2019-11-30 07:52 | NUR ---
requesting to use the restroom before breathing treament
--- NOTE | 2019-11-30 07:58 | NUR ---
Patient in the restroom refused to wait for staff to get him a commode
[2019-11-30] MEDS ORDERED: citalopram 20mg tablet PO SCH (08:00)
--- NOTE | 2019-11-30 08:14 | NUR ---
patient is back in bed escorted back by tech, had a bowel movement.
--- NOTE | 2019-11-30 08:23 | NUR ---
receiving respiratory treatment
--- NOTE | 2019-11-30 08:29 | NUR ---
finished breathing treatment
[2019-11-30] MEDS: gabapentin 300mg capsule PO SCH ×3 (08:31→17:40)
--- NOTE | 2019-11-30 09:02 | NUR ---
laying in bed awake
--- NOTE | 2019-11-30 10:01 | NUR ---
patient sleeping on back
--- NOTE | 2019-11-30 11:01 | NUR ---
sleeping on left side
--- NOTE | 2019-11-30 12:04 | NUR ---
asleep laying on back
--- NOTE | 2019-11-30 12:04 | NUR ---
nurse to nurse given to [facility]
--- NOTE | 2019-11-30 14:06 | NUR ---
sleeping in bed
--- NOTE | 2019-11-30 14:46 | NUR ---
NATTY's office called back with a pickup time for 1700 earlier.
--- NOTE | 2019-11-30 15:09 | NUR ---
Asleep laying on right side
--- NOTE | 2019-11-30 15:40 | NUR ---
Receiving breathing treatment
--- NOTE | 2019-11-30 15:52 | NUR ---
finished with respiratory treatment
--- NOTE | 2019-11-30 16:31 | NUR ---
Sleeping laying on his back
--- NOTE | 2019-11-30 17:04 | NUR ---
asleep laying back
[2019-11-30 17:30] VITALS: BP 143/89
== END 2019-11-30 17:46 ==
LOC: ER 15:39
DX: F32.9 Major depressive disorder, single episode, unspecified (principal); F10.129 Alcohol abuse with intoxication, unspecified; G89.4 Chronic pain syndrome; I10 Essential (primary) hypertension; J44.9 Chronic obstructive pulmonary disease, unspecified; Z86.19 Personal history of other infectious and parasitic diseases; Z85.038 Personal history of other malignant neoplasm of large intestine; Z98.890 Other specified postprocedural states; Z60.2 Problems related to living alone; G62.9 Polyneuropathy, unspecified; Z79.899 Other long term (current) drug therapy; Y90.0 Blood alcohol level of less than 20 mg/100 ml
CPT/HCPCS: 36415; 80053; 80305; 80320; 81001; 84443; 85025; 94640; 94760; 99285; J7626

== ENCOUNTER 2019-12-28 06:52 | Observation (INO) | payer MEDICARE, OTHER, MEDICAID ==
[~2019-12-28] VITALS: Ht 172.7 cm; Wt 54.5 kg
[~2019-12-28 06:52] MED LIST changes: -ALBU18HF2 IH; -ALBU8.5H8 INH; +ALBU8HFA PO; -AZIT-63 PO; -MULT-1179 PO; -PRED20TA PO; -THIA100T70 PO; -UMEC1DIS IH
[2019-12-28] MEDS ORDERED: methylPREDNISolone sod succ 125mg/2ml vial IV ONE (07:05)
[2019-12-28] MEDS ORDERED: ipratropium/albuterol 3ml nebule NEB ONE (07:05)
[2019-12-28] MEDS ORDERED: normal saline 1000ML IV soln IVB ONE ×2 (07:05→09:35)
[2019-12-28] MEDS ORDERED: LORazepam 2 mg/ml vial IV ONE (07:10)
[2019-12-28 07:36] LABS: BASOPHILS % (AUTO) 0.9 % (0-1); EOSINOPHILS # (AUTO) 0.6 X10'3 (0-0.9); EOSINOPHILS % (AUTO) 14.1 % (0-6); HEMATOCRIT 36.3 % (42.0-52.0); HEMOGLOBIN 11.8 g/dl (14.0-17.9); LYMPHOCYTES # (AUTO) 0.6 X10'3 (1.1-4.8); LYMPHOCYTES % (AUTO) 15.7 % (21-51); MEAN CORPUSCULAR HEMOGLOBIN 27.2 PG (27.0-31.0); MEAN CORPUSCULAR HGB CONC 32.6 g/dL (33.0-36.5); MEAN CORPUSCULAR VOLUME 83.3 FL (78-98); MEAN PLATELET VOLUME 6.6 FL (7.4-10.4); MONOCYTES # (AUTO) 0.5 X10'3 (0-0.9); MONOCYTES % (AUTO) 12.2 % (2-12); NEUTROPHILS # (AUTO) 2.3 X10'3 (1.8-7.7); NEUTROPHILS % (AUTO) 57.1 % (42-75); PLATELET COUNT 176 X10'3 (140-440); RED BLOOD COUNT 4.35 X10'6 (4.70-6.10); RED CELL DISTRIBUTION WIDTH 22.4 % (11.5-14.5)
[2019-12-28 07:45] LABS: PARTIAL THROMBOPLASTIN TIME 35 SECONDS (22-32)
[2019-12-28 07:48] LABS: ALANINE AMINOTRANSFERASE 14 U/L (12-78); ALBUMIN 3.6 G/DL (3.4-5.0); ALBUMIN/GLOBULIN RATIO 1.1 (1.1-1.5); ALKALINE PHOSPHATASE 85 IU/L (46-116); ANION GAP 8 (8-16); ASPARTATE AMINO TRANSFERASE 20 U/L (10-37); BILIRUBIN,TOTAL 0.6 MG/DL (0.1-1.0); BLOOD UREA NITROGEN 4 MG/DL (7-18); BUN/CREATININE RATIO 5.4 (5.4-32.0); CHLORIDE 92 MMOL/L (99-107); CREATININE 0.74 MG/DL (0.60-1.10); GLUCOSE 87 MG/DL (70-104); POTASSIUM 4.3 MMOL/L (3.5-5.1); SODIUM 126 MMOL/L (135-145); TOTAL CARBON DIOXIDE 25.8 MMOL/L (24-32); TOTAL PROTEIN 6.9 G/DL (6.4-8.2); eGFR > 90 ML/MIN
[2019-12-28 07:52] LABS: ETHANOL < 0.010 GM/DL (0.0-0.010); TROPONIN I < 0.04 NG/ML (0.0-0.05)
[2019-12-28 08:27] LABS: PLATELET ESTIMATE NORMAL
[2019-12-28 08:28] LABS: ANISOCYTOSIS 3+
[2019-12-28 09:12] LABS: ALBUMIN 3.4 G/DL (3.4-5.0); ANION GAP 8 (8-16); BLOOD UREA NITROGEN 4 MG/DL (7-18); BUN/CREATININE RATIO 5.9 (5.4-32.0); CALCIUM 8.1 MG/DL (8.5-10.1); CHLORIDE 93 MMOL/L (99-107); CREATININE 0.68 MG/DL (0.60-1.10); GLUCOSE 89 MG/DL (70-104); POTASSIUM 3.5 MMOL/L (3.5-5.1); SODIUM 127 MMOL/L (135-145); TOTAL CARBON DIOXIDE 25.7 MMOL/L (24-32); eGFR > 90 ML/MIN
--- NOTE | 2019-12-28 09:45 | NUR ---
SPOKE TO JERRI CAREGIVER [phone]
--- NOTE | 2019-12-28 09:49 | NUR ---
JERRI WILL BE AVAILABLE AT THE TIME OF DISCHARGE
[2019-12-28] MEDS ORDERED: ondansetron/PF 4mg/2ml inj IV PRN (10:15)
[2019-12-28] MEDS ORDERED: HYDROcodone/acetaminophen 10/325mg tab PO PRN (10:15)
[2019-12-28] MEDS ORDERED: potassium Cl 20 mEq SR tablet PO PRN ×2 (10:15)
[2019-12-28] MEDS ORDERED: haloperidol lactate 5mg/ml inj IM PRN (10:15)
[2019-12-28] MEDS ORDERED: magnesium Cl slow-release 64mg tablet PO PRN (10:15)
[2019-12-28] MEDS ORDERED: potassium CL 10mEq/100ml bag 100 ML IV PRN ×2 (10:15)
[2019-12-28] MEDS ORDERED: ipratropium/albuterol 3ml nebule NEB PRN (10:15)
[2019-12-28] MEDS ORDERED: docusate sod 100mg capsule PO PRN (10:15)
[2019-12-28] MEDS ORDERED: LORazepam 2 mg/ml vial IV PRN (10:15)
[2019-12-28] MEDS ORDERED: magnesium 4gm in 100ml NS 100 ML IV PRN (10:15)
[2019-12-28] MEDS ORDERED: haloperidol 5mg tablet PO PRN (10:15)
[2019-12-28] MEDS ORDERED: acetaminophen 325mg tablet PO PRN ×2 (10:15)
[2019-12-28] MEDS ORDERED: HYDROcodone/acetaminophen 5mg/325mg tablet PO PRN (10:15)
[2019-12-28] MEDS ORDERED: magnesium 2GM in 50ml NS 50 ML IV PRN (10:15)
[2019-12-28] MEDS ORDERED: mag hydrox/Alum hydrox/simeth 30ml oral suspension PO PRN (10:15)
[2019-12-28] MEDS ORDERED: albuterol 2.5 MG/3 ML nebule NEB PRN (11:00)
[2019-12-28] MEDS ORDERED: CITA20TA28 PO (11:05)
[2019-12-28] MEDS ORDERED: DULO60CA65 PO (11:05)
[2019-12-28] MEDS ORDERED: OMEP-50 PO (11:05)
[2019-12-28] MEDS ORDERED: DULO20CA18 PO (11:05)
[2019-12-28] MEDS ORDERED: FERR325T7 PO (11:05)
[2019-12-28 11:21] LABS: CLARITY,URINE CLEAR (Clear); COLOR,URINE STRAW (Yellow); GLUCOSE, URINE NEGATIVE (Neg); KETONES,URINE NEGATIVE (Neg); LEUKOCYTE ESTERASE ,URINE NEGATIVE (Neg); NITRITES, URINE NEGATIVE (Neg); OCCULT BLOOD,URINE SMALL (Neg); PROTEIN,URINE NEGATIVE (Neg); UA COLLECTION TYPE URINAL; UROBILINOGEN,URINE 0.2 E.U/dL (0.2-1.0)
[2019-12-28 11:26] LABS: BACTERIA,URINE NONE SEEN /HPF (Neg); MUCUS STRANDS NONE SEEN /LPF (Neg); RBC,URINE 0-2 /HPF (0-2); SQUAMOUS EPITHELIAL CELL,UR FEW /LPF (FEW); WBC,URINE NONE SEEN /HPF (0-4)
[2019-12-28 11:40] LABS: URINE AMPHETAMINE SCREEN NEGATIVE (Neg); URINE BARBITUATE SCREEN NEGATIVE (Neg); URINE BENZODIAZEPINES SCREEN NEGATIVE (Neg); URINE CANNABINOID SCREEN NEGATIVE (Neg); URINE COCAINE SCREEN NEGATIVE (Neg); URINE METHADONE SCREEN NEGATIVE (Neg); URINE OPIATE SCREEN NEGATIVE (Neg); URINE PHENCYCLIDINE SCREEN NEGATIVE (Neg)
[2019-12-28] MEDS: normal saline 1000ml 1,000 ML IV SCH ×2 (11:43→17:19)
[2019-12-28 13:30] VITALS: BP 158/89
[2019-12-28] MEDS: gabapentin 300mg capsule PO SCH ×3 (15:12→21:00)
--- NOTE | 2019-12-28 15:45 | NUR ---
Received pt report from Jesus RN, ED.
[2019-12-28 18:00] VITALS: BP 155/74
--- NOTE | 2019-12-28 18:41 | NUR ---
Patient in room [facility]. I have received report from Kristina MUKHERJEE and had the opportunity to ask questions and assume patient care. Patient in the room resting and shows no apparent istress
--- NOTE | 2019-12-28 18:59 | NUR ---
Problems reprioritized. Patient report given, questions answered & plan of care reviewed with YAZ Vanessa. No tremor noted, no c/o nausea.
[2019-12-28 19:00] VITALS: BP 155/74
[2019-12-28] MEDS: budesonide 0.5mg/2ml UD nebule IH SCH (20:00)
[2019-12-28] MEDS: K and/or MAG REPLACEMENT MC SCH (20:00)
[2019-12-29] VITALS: BP 115/70
[2019-12-29] MEDS: normal saline 1000ml 1,000 ML IV SCH (02:43)
[2019-12-29 05:11] LABS: HEMATOCRIT 33.8 % (42.0-52.0); MEAN CORPUSCULAR HEMOGLOBIN 27.5 PG (27.0-31.0); MEAN CORPUSCULAR HGB CONC 32.6 g/dL (33.0-36.5); MEAN CORPUSCULAR VOLUME 84.3 FL (78-98); MEAN PLATELET VOLUME 6.4 FL (7.4-10.4); PLATELET COUNT 166 X10'3 (140-440); RED CELL DISTRIBUTION WIDTH 22.2 % (11.5-14.5); WHITE BLOOD COUNT 4.4 X10'3 (4.5-11.0)
[2019-12-29 05:26] LABS: ALANINE AMINOTRANSFERASE 9 U/L (12-78); ALKALINE PHOSPHATASE 68 IU/L (46-116); AMYLASE 20 U/L (25-115); ANION GAP 7 (8-16); ASPARTATE AMINO TRANSFERASE 17 U/L (10-37); BILIRUBIN,TOTAL 0.6 MG/DL (0.1-1.0); BLOOD UREA NITROGEN 5 MG/DL (7-18); BUN/CREATININE RATIO 7.1 (5.4-32.0); CALCIUM 8.2 MG/DL (8.5-10.1); CHLORIDE 103 MMOL/L (99-107); GLUCOSE 81 MG/DL (70-104); LIPASE 80 U/L (73-393); MAGNESIUM 1.5 MG/DL (1.5-2.4); PHOSPHORUS 2.6 MG/DL (2.3-4.5); POTASSIUM 4.1 MMOL/L (3.5-5.1); SODIUM 135 MMOL/L (135-145); TOTAL CARBON DIOXIDE 25.2 MMOL/L (24-32); TOTAL PROTEIN 5.9 G/DL (6.4-8.2); eGFR > 90 ML/MIN
--- NOTE | 2019-12-29 06:00 | NUR ---
Patient in room [facility]. I have received report from Rasheeda MUKHERJEE and had the opportunity to ask questions and assume patient care.
--- NOTE | 2019-12-29 06:31 | NUR ---
Problems reprioritized. Patient report given, questions answered & plan of care reviewed with Obdulia RN.Patient is resting and shows no sign of distress.
[2019-12-29 07:00] VITALS: BP 119/64
[2019-12-29] MEDS ORDERED: folic acid 1mg tablet PO SCH (08:00)
[2019-12-29] MEDS ORDERED: enoxaparin 40mg/0.4ml syringe SQ SCH (08:00)
[2019-12-29] MEDS: K and/or MAG REPLACEMENT MC SCH (08:00)
[2019-12-29] MEDS ORDERED: citalopram 20mg tablet PO SCH (08:00)
[2019-12-29] MEDS ORDERED: thiamine 100mg tablet PO SCH (08:00)
[2019-12-29] MEDS ORDERED: multivitamins, therapeutics tablet PO SCH (08:00)
[2019-12-29] MEDS: gabapentin 300mg capsule PO SCH ×2 (08:06→13:00)
[2019-12-29] MEDS: budesonide 0.5mg/2ml UD nebule IH SCH (09:29)
[2019-12-29 11:00] VITALS: BP 113/60
--- NOTE | 2019-12-29 12:21 | NUR ---
Malnutrition consult: Pt reports wt loss with decreased appetite per malnutrition risk screen with RN. Patient's BMI is just below normal however current documented wt is stable with scaled wt hx. Pt currently on a heart healthy diet documented with 75% PO intake meeting nutrient needs. Pt with no documented significant decrease in muscle strength or edema. Pt currently lacks a minimum of two criteria for malnutrition. Pt receiving routine Thiamine, Folic acid, and MVI for EtOH hx. Will continue to follow. Addendum: 12/29/19 at [address] Amended: Links added.
--- NOTE | 2019-12-29 15:12 | NUR ---
Patient stable for discharge home today, all instructions given to patient and questions answered. IV discontinued and cannula intact. All belongings sent home with patient.
[2019-12-30] MEDS ORDERED: LORazepam 2 mg/ml vial IV PRN (10:15)
[2019-12-30] MEDS ORDERED: LORazepam 1 MG tablet PO PRN (10:15)
[2020-01-01] MEDS ORDERED: LORazepam 2 mg/ml vial IV PRN (10:15)
[2020-01-01] MEDS ORDERED: LORazepam 1 MG tablet PO PRN (10:15)
== END 2019-12-29 14:45 | disposition home or self-care (01) ==
LOC: ER 06:53 → ED HOLD 10:13 → EDBEDREQ 12:42 → SUR 3N 13:37
PROVIDERS: ADMIT Family Medicine; ATTEND Family Medicine
DX: E87.1 Hypo-osmolality and hyponatremia (principal); R11.10 Vomiting, unspecified; G25.2 Other specified forms of tremor; G62.9 Polyneuropathy, unspecified; J44.1 Chronic obstructive pulmonary disease with (acute) exacerbation; I25.10 Atherosclerotic heart disease of native coronary artery without angina pectoris; I48.91 Unspecified atrial fibrillation; I10 Essential (primary) hypertension; F10.239 Alcohol dependence with withdrawal, unspecified; F17.210 Nicotine dependence, cigarettes, uncomplicated; Z85.038 Personal history of other malignant neoplasm of large intestine; Z95.3 Presence of xenogenic heart valve; Z90.49 Acquired absence of other specified parts of digestive tract; Z79.51 Long term (current) use of inhaled steroids; Z79.899 Other long term (current) drug therapy
CPT/HCPCS: 36415; 71045; 80048; 80053; 80305; 80320; 81001; 82150; 82948; 83605; 83690; 83735; 84100; 84145; 84484; 85025; 85027; 85610; 85730; 87040; 87081; 93005; 94640; 94667; 94760; 96361; 96372; 96374; 96375; 97110; 97116; 97161; 97530; 99285; G0378; J2060; J2930; J7030; J1650; J7626

== ENCOUNTER 2020-03-30 07:19 | Emergency (ER) | payer MEDICARE, OTHER, MEDICAID ==
[~2020-03-30] VITALS: Ht 175.3 cm; Wt 57.7 kg
[~2020-03-30 07:19] MED LIST changes: +CITA20TA28 PO; -CITA40TA17 PO; +DULO60CA65 PO; +FERR325T7 PO; +OMEP-50 PO
[2020-03-30] MEDS ORDERED: dexamethasone sod phosphate 10mg/ml inj IV STA (07:20)
[2020-03-30] MEDS ORDERED: ipratropium/albuterol 3ml nebule NEB ONE (07:20)
--- NOTE | 2020-03-30 07:55 | NUR ---
PT HAVING INTERMITTENT TREMORS THRUOUT EXT.
[2020-03-30] MEDS ORDERED: ondansetron/PF 4mg/2ml inj IV ONE (08:00)
[2020-03-30] MEDS ORDERED: LORazepam 2 mg/ml vial IV ONE (08:00)
--- NOTE | 2020-03-30 08:00 | NUR ---
when starting iv pt states, i need some morphine. informed pt he's having no pain so morphine is not needed.
[2020-03-30 08:06] LABS: BASOPHILS # (AUTO) 0.1 X10'3 (0-0.2); BASOPHILS % (AUTO) 1.3 % (0-1); EOSINOPHILS # (AUTO) 0.7 X10'3 (0-0.9); EOSINOPHILS % (AUTO) 16.2 % (0-6); HEMATOCRIT 40.5 % (42.0-52.0); HEMOGLOBIN 13.3 g/dl (14.0-17.9); LYMPHOCYTES # (AUTO) 0.8 X10'3 (1.1-4.8); LYMPHOCYTES % (AUTO) 19.9 % (21-51); MEAN CORPUSCULAR HEMOGLOBIN 29.4 PG (27.0-31.0); MEAN CORPUSCULAR HGB CONC 32.9 g/dL (33.0-36.5); MEAN CORPUSCULAR VOLUME 89.6 FL (78-98); MEAN PLATELET VOLUME 6.5 FL (7.4-10.4); MONOCYTES # (AUTO) 0.4 X10'3 (0-0.9); NEUTROPHILS # (AUTO) 2.1 X10'3 (1.8-7.7); NEUTROPHILS % (AUTO) 51.6 % (42-75); PLATELET COUNT 207 X10'3 (140-440); RED BLOOD COUNT 4.52 X10'6 (4.70-6.10); RED CELL DISTRIBUTION WIDTH 17.3 % (11.5-14.5)
[2020-03-30 08:13] LABS: ANION GAP 8 (8-16); BLOOD UREA NITROGEN 4 MG/DL (7-18); BUN/CREATININE RATIO 5.7 (5.4-32.0); CHLORIDE 96 MMOL/L (99-107); GLUCOSE 92 MG/DL (70-104); POTASSIUM 4.3 MMOL/L (3.5-5.1); SODIUM 130 MMOL/L (135-145); TOTAL CARBON DIOXIDE 26.1 MMOL/L (24-32)
[2020-03-30 08:14] LABS: ALANINE AMINOTRANSFERASE 13 U/L (12-78); ALBUMIN 3.8 G/DL (3.4-5.0); ALKALINE PHOSPHATASE 110 IU/L (46-116); ASPARTATE AMINO TRANSFERASE 20 U/L (10-37); BILIRUBIN,TOTAL 0.4 MG/DL (0.1-1.0); CALCIUM 8.6 MG/DL (8.5-10.1); TOTAL PROTEIN 7.7 G/DL (6.4-8.2); eGFR > 90 ML/MIN
[2020-03-30] MEDS ORDERED: ALBU8HFA PO (09:23)
[2020-03-30] MEDS ORDERED: PRED20TA PO (09:23)
[2020-03-30] MEDS ORDERED: DOXY100C43 PO (09:23)
[2020-03-30 09:43] VITALS: BP 113/77
[2020-03-30] MEDS ORDERED: LORA-269 PO (09:47)
--- NOTE | 2020-03-30 09:52 | NUR ---
PT REQUESTING MED FOR HIS TREMORS AND ANXIETY, INFORMED DR. Burciaga. PLEASE SEE NEW ORDERS.
--- NOTE | 2020-03-30 09:53 | NUR ---
[facility] CALLED FOR PT RIDE HOME
== END 2020-03-30 10:08 | disposition home or self-care (01) ==
LOC: ER 07:19
DX: J44.1 Chronic obstructive pulmonary disease with (acute) exacerbation (principal); F12.90 Cannabis use, unspecified, uncomplicated; G62.9 Polyneuropathy, unspecified; I10 Essential (primary) hypertension; J44.9 Chronic obstructive pulmonary disease, unspecified; Z90.49 Acquired absence of other specified parts of digestive tract; Z98.890 Other specified postprocedural states; Z87.891 Personal history of nicotine dependence; Z60.2 Problems related to living alone; Z79.899 Other long term (current) drug therapy
CPT/HCPCS: 36415; 71045; 80053; 83880; 84484; 85025; 93005; 94640; 96374; 96375; 99285; J1100; J2060; J2405; 94760

== ENCOUNTER 2020-04-10 09:45 | Emergency (ER) | payer MEDICARE, OTHER, MEDICAID ==
[~2020-04-10] VITALS: Ht 175.3 cm; Wt 58.6 kg
[~2020-04-10 09:45] MED LIST changes: +DOXY100C43 PO; +LORA-269 PO; +PRED20TA PO
[2020-04-10 10:20] LABS: BASOPHILS # (AUTO) 0.1 X10'3 (0-0.2); BASOPHILS % (AUTO) 1.7 % (0-1); EOSINOPHILS # (AUTO) 0.5 X10'3 (0-0.9); EOSINOPHILS % (AUTO) 13.1 % (0-6); HEMATOCRIT 37.6 % (42.0-52.0); HEMOGLOBIN 12.6 g/dl (14.0-17.9); LYMPHOCYTES # (AUTO) 0.6 X10'3 (1.1-4.8); LYMPHOCYTES % (AUTO) 14.8 % (21-51); MEAN CORPUSCULAR HEMOGLOBIN 30.3 PG (27.0-31.0); MEAN CORPUSCULAR HGB CONC 33.5 g/dL (33.0-36.5); MEAN CORPUSCULAR VOLUME 90.4 FL (78-98); MEAN PLATELET VOLUME 6.5 FL (7.4-10.4); MONOCYTES # (AUTO) 0.5 X10'3 (0-0.9); MONOCYTES % (AUTO) 13.1 % (2-12); NEUTROPHILS # (AUTO) 2.4 X10'3 (1.8-7.7); NEUTROPHILS % (AUTO) 57.3 % (42-75); PLATELET COUNT 181 X10'3 (140-440); RED BLOOD COUNT 4.16 X10'6 (4.70-6.10); RED CELL DISTRIBUTION WIDTH 18.4 % (11.5-14.5); WHITE BLOOD COUNT 4.2 X10'3 (4.5-11.0)
[2020-04-10] MEDS ORDERED: LORazepam 2 mg/ml vial IV ONE (10:40)
[2020-04-10] MEDS ORDERED: methylPREDNISolone sod succ 125mg/2ml vial IV ONE (10:40)
[2020-04-10 10:43] LABS: ALANINE AMINOTRANSFERASE 13 U/L (12-78); ALBUMIN 3.4 G/DL (3.4-5.0); ALKALINE PHOSPHATASE 90 IU/L (46-116); ANION GAP 10 (8-16); ASPARTATE AMINO TRANSFERASE 23 U/L (10-37); BILIRUBIN,TOTAL 0.7 MG/DL (0.1-1.0); BLOOD UREA NITROGEN 4 MG/DL (7-18); BUN/CREATININE RATIO 4.5 (5.4-32.0); CALCIUM 8.6 MG/DL (8.5-10.1); CHLORIDE 98 MMOL/L (99-107); CREATININE 0.88 MG/DL (0.60-1.10); GLUCOSE 93 MG/DL (70-104); POTASSIUM 3.6 MMOL/L (3.5-5.1); SODIUM 131 MMOL/L (135-145); TOTAL CARBON DIOXIDE 23.1 MMOL/L (24-32); TOTAL PROTEIN 6.8 G/DL (6.4-8.2); eGFR 86 ML/MIN
--- NOTE | 2020-04-10 11:39 | NUR ---
Pt observed ambulating with steady gait with use of FWW, armored service technician standby. Pt SpO2 noted to be 95% on room air while ambulating, no s/sx of respiratory distress noted.
--- NOTE | 2020-04-10 12:14 | NUR ---
mauri [phone] will be here to pickling operator pt
[2020-04-10 12:27] VITALS: BP 126/84
== END 2020-04-10 12:41 | disposition home or self-care (01) ==
LOC: ER 09:45
DX: J44.1 Chronic obstructive pulmonary disease with (acute) exacerbation (principal); F41.9 Anxiety disorder, unspecified; G89.29 Other chronic pain; G62.9 Polyneuropathy, unspecified; I10 Essential (primary) hypertension; F12.90 Cannabis use, unspecified, uncomplicated; Z86.19 Personal history of other infectious and parasitic diseases; Z72.89 Other problems related to lifestyle; Z60.2 Problems related to living alone; Z98.890 Other specified postprocedural states; Z79.899 Other long term (current) drug therapy
CPT/HCPCS: 36415; 71045; 80053; 83880; 84484; 85025; 93005; 96374; 96375; 99285; J2060; J2930

== ENCOUNTER 2020-05-30 01:22 | Emergency (ER) | payer MEDICARE, OTHER, MEDICAID ==
[~2020-05-30] VITALS: Ht 175.3 cm; Wt 57.7 kg
[~2020-05-30 01:22] MED LIST changes: -DOXY100C43 PO; -PRED20TA PO
[2020-05-30] MEDS ORDERED: ipratropium/albuterol 3ml nebule NEB ONE (01:50)
[2020-05-30] MEDS ORDERED: predniSONE 20 mg tablet PO ONE (01:50)
[2020-05-30 03:02] LABS: BASOPHILS % (AUTO) 0.8 % (0-1); EOSINOPHILS # (AUTO) 0.9 X10'3 (0-0.9); EOSINOPHILS % (AUTO) 23.5 % (0-6); HEMOGLOBIN 12.9 g/dl (14.0-17.9); LYMPHOCYTES # (AUTO) 0.7 X10'3 (1.1-4.8); LYMPHOCYTES % (AUTO) 16.7 % (21-51); MEAN CORPUSCULAR HEMOGLOBIN 31.8 PG (27.0-31.0); MEAN CORPUSCULAR VOLUME 96.4 FL (78-98); MEAN PLATELET VOLUME 6.5 FL (7.4-10.4); MONOCYTES # (AUTO) 0.4 X10'3 (0-0.9); MONOCYTES % (AUTO) 10.9 % (2-12); NEUTROPHILS # (AUTO) 1.9 X10'3 (1.8-7.7); NEUTROPHILS % (AUTO) 48.1 % (42-75); PLATELET COUNT 171 X10'3 (140-440); RED BLOOD COUNT 4.05 X10'6 (4.70-6.10); RED CELL DISTRIBUTION WIDTH 17.8 % (11.5-14.5)
[2020-05-30 03:09] LABS: ALBUMIN 3.4 G/DL (3.4-5.0); ANION GAP 12 (8-16); BLOOD UREA NITROGEN 5 MG/DL (7-18); BUN/CREATININE RATIO 7.2 (5.4-32.0); CALCIUM 9.4 MG/DL (8.5-10.1); CHLORIDE 98 MMOL/L (99-107); CREATININE 0.69 MG/DL (0.60-1.10); GLUCOSE 91 MG/DL (70-104); SODIUM 134 MMOL/L (135-145); TOTAL CARBON DIOXIDE 24.4 MMOL/L (24-32); eGFR > 90 ML/MIN
[2020-05-30 03:20] LABS: PLATELET ESTIMATE NORMAL; TOTAL CELLS COUNTED 100
[2020-05-30 03:50] LABS: TROPONIN I < 0.04 NG/ML (0.0-0.05)
[2020-05-30 03:54] VITALS: BP 139/86
[2020-05-30] MEDS ORDERED: PRED20TA PO (04:53)
== END 2020-05-30 06:11 | disposition home or self-care (01) ==
LOC: ER 01:22
DX: J44.1 Chronic obstructive pulmonary disease with (acute) exacerbation (principal); G62.9 Polyneuropathy, unspecified; I10 Essential (primary) hypertension; J44.9 Chronic obstructive pulmonary disease, unspecified; F41.9 Anxiety disorder, unspecified; F12.90 Cannabis use, unspecified, uncomplicated; Z98.890 Other specified postprocedural states; Z72.89 Other problems related to lifestyle; Z60.2 Problems related to living alone; Z79.899 Other long term (current) drug therapy
CPT/HCPCS: 36415; 71045; 80048; 84484; 85007; 85025; 93005; 94640; 99285; J7512; 94760